=== PATIENT | male | born 1970 | race Caucasian/White ===

== ENCOUNTER 2019-10-25 07:23 | Day surgery (SDC) | payer BC ==
[2019-10-24 17:21] LABS: Absolute Lymphocytes (CBC) 0.6 K/uL (0.7-4.9); Basophils % 0.2 % (0-1.3); Hematocrit 24.5 % (39.6-49.0); Lymphocytes % 8.9 % (15.3-44.8); MPV 8.2 fL (7.6-11.3); RBC Red Blood Cell Count 2.69 M/uL (4.33-5.43)
[2019-10-24 17:52] LABS: Platelet Estimate ADEQ; Urine White Blood Cell Casts OK
[2019-10-24 17:53] LABS: Blood Morphology Comment NOT SEEN (NOT SEEN)
[2019-10-25] MEDS ORDERED: NA CHLORIDE 0.9% 500 ML ONE (07:43)
[2019-10-25 08:30] VITALS: BMI 38.7
[2019-10-25 12:58] LABS: Hematocrit 26.6 % (39.6-49.0)
[2019-10-25 13:13] VITALS: BP 105/67; TEMP 98.8; O2SAT 98
== END 2019-10-25 13:00 | disposition home or self-care (01) ==
LOC: DS 07:23
PROVIDERS: ATTEND Internal Medicine Gastroenterology
DX: K51.90 Ulcerative colitis, unspecified, without complications (principal); K92.1 Melena; K29.80 Duodenitis without bleeding; K52.9 Noninfective gastroenteritis and colitis, unspecified; E86.0 Dehydration
CPT/HCPCS: 85025; 36415; 86900; 86850; 86901; 85018; 85014; 36430; P9016; J7040

== ENCOUNTER 2020-01-30 07:35 | Day surgery (SDC) | payer OTHER ==
[2020-01-29 19:33] LABS: Absolute Lymphocytes (CBC) 0.7 K/uL (0.7-4.9); Basophils % 0.2 % (0-1.3); Hematocrit 23.3 % (39.6-49.0); Lymphocytes % 11.8 % (15.3-44.8); MPV 7.8 fL (7.6-11.3); RBC Red Blood Cell Count 3.37 M/uL (4.33-5.43)
[2020-01-29 20:39] LABS: Blood Morphology Comment NOTED (NOT SEEN); Hypochromasia 1+; Platelet Estimate INCR; Urine White Blood Cell Casts OK
[2020-01-30] MEDS ORDERED: NA CHLORIDE 0.9% 250 ML ONE ×2 (08:19→10:59)
[2020-01-30] MEDS ORDERED: FUROSEMIDE 40 MG/4 ML VIAL ONE (09:18)
[2020-01-30 13:09] VITALS: BP 119/70; TEMP 98.9; O2SAT 99
[2020-01-30 15:13] LABS: Hematocrit 28.7 % (39.6-49.0)
== END 2020-01-30 15:05 | disposition home or self-care (01) ==
LOC: DS 07:35
PROVIDERS: ATTEND Internal Medicine Gastroenterology
DX: D50.0 Iron deficiency anemia secondary to blood loss (chronic) (principal); R53.83 Other fatigue; K92.1 Melena; K56.690 Other partial intestinal obstruction; K51.90 Ulcerative colitis, unspecified, without complications
CPT/HCPCS: 85025; 36415; 86900; 86850; 86901; 85018; 85014; 36430; J1940; P9016 ×2; J7030 ×2

== ENCOUNTER 2020-04-29 13:28 | Emergency (ER) | payer OTHER ==
[2020-04-29] MEDS ORDERED: HYDROCODONE/APAP 7.5/325 MG TAB ONE (13:54)
[2020-04-29] MEDS ORDERED: FENTANYL CITR 100 MCG/2 ML ONE (14:39)
[2020-04-29] MEDS ORDERED: NA CHLORIDE 0.9% 1,000 ML ONE (14:39)
--- OUTSIDE RECORDS SUMMARY | 2020-04-29 14:56 | XMS REPORT | Continuity of Care Document ---
:1970 Author Organization [facility] Address [address] [place] [address] Care Team Providers Name Role Phone MD Hilary VERDE Primary Care Physician Allergies, Adverse Reactions, Alerts No known allergies. Medications No known medications. Problems No problem information available. Procedures No procedure information available. Relevant Diagnostic Tests and/or Laboratory Data No known relevant diagnostic tests and/or laboratory data. Health Concerns Health Concerns may be documented in an alternate section. Advance Directives Advance Directive Response Recorded Date/Time Name of Surrogate/Decision February 10 0 9:39am Maker Encounters Encounter Location(s) Arrival/Admit Date Discharge/Depart Date Provider(s) Discharged [place] February 11, 2020 March 02, 2020 Dylon VERDE [facility] 9:40am 11:59pm Hil[facility] Assessments No Assessments Information Available Functional Status No Functional Status information available Goals Goals may be documented in an alternate section. Immunizations No Immunization Information Available Mental Status No Mental Status Information Available Medical Equipment No Medical Equipment Information available Insurance Providers Guarantor Mecca Martinez Address [address] [facility] [address] Contact Info. Home Phone: Payer Policy Id Coverage Id Subscriber's Subscriber Id Effective E xpiration Name Date Date [place] [id number] Juan [id number] Health Plan [address] Social History Assigned Sex Male Vital Signs Vital Reading Result Collection Date/Time
--- OUTSIDE RECORDS SUMMARY | 2020-04-29 14:56 | XMS REPORT | Continuity of Care Document ---
:1970 Author Organization [facility] Address [address] [place] [address] Care Team Providers Name Role Phone OTHER, NAME IN NOTES Primary Care Physician Unavailable Allergies, Adverse Reactions, Alerts No known allergies. Medications No known medications. Problems No problem information available. Procedures No procedure information available. Relevant Diagnostic Tests and/or Laboratory Data No known relevant diagnostic tests and/or laboratory data. Health Concerns Health Concerns may be documented in an alternate section. Encounters Encounter Location(s) Arrival/Admit Date Discharge/Depart Date Provider(s) Discharged [place] March 24, 2020 April 01, 2020 ANGELICA VERDE [facility] 9:53am 11:59pm M Ctr Discharged [place] February 11, 2020 March 02, 2020 Dylon VERDE [facility] 9:40am 11:59pm M MD Phillip Assessments No Assessments Information Available Functional Status No Functional Status information available Goals Goals may be documented in an alternate section. Immunizations No Immunization Information Available Mental Status No Mental Status Information Available Medical Equipment No Medical Equipment Information available Insurance Providers Guarantor Mecca Martinez Address [address] [facility] [address] Contact Info. Home Phone: Payer Policy Id Coverage Id Subscriber's Subscriber Id Effective E xpiration Name Date Date [place] [id number] Juan [id number] Health Plan [address] Social History Assigned Sex Male Vital Signs Vital Reading Result Collection Date/Time
--- NOTE | 2020-04-29 15:32 | RAD REPORT ---
EXAM DESCRIPTION: RAD - Ankle Left 3 View -04/29/2020 2:17 pm CLINICAL HISTORY: Left ankle pain status post injury FINDINGS: No fracture or dislocation is seen involving the left ankle
--- NOTE | 2020-04-29 15:37 | RAD REPORT ---
EXAM DESCRIPTION: RAD - Foot Left 3 View - 04/29/2020 2:17 pm CLINICAL HISTORY: Left Foot pain status post fall FINDINGS: Dislocations involves proximal fourth and fifth metatarsals. Also appears to be a dislocat ion involving the calcaneal cuboid joint. No fracture visualized
--- NOTE | 2020-04-29 15:39 | RAD REPORT ---
EXAM DESCRIPTION: RAD - Foot Left 3 View - 04/29/2020 3:00 pm CLINICAL HISTORY: Left Foot pain status post fall FINDINGS: Comparison is made to earlier x-ray on the same date Previously described dislocation involving the proximal fourth metatarsal appears reduced There is better alignment of fifth metatarsal although it appears mildly dislocated The calcaneal cuboid joint has a more normal appearance
--- NOTE | 2020-04-29 17:13 | RAD REPORT ---
EXAM DESCRIPTION: CT - Foot Left Wo Con - 04/29/2020 4:41 pm CLINICAL HISTORY: Foot pain and swelling COMPARISON: X-ray April 29, 2020 TECHNIQUE: Computed axial tomography left foot All CT scans are performed using dose optimization technique as appropriate and may include automated exposure control or mA/KV adjustment according to patient size. FINDINGS: Small avulsion fracture base of second metatarsal Comminuted fracture base of third metatarsal . Largest fragment measures 13 millimeters. Dislocation third MTP joint The cuboid bone is shattered into multiple bony fragments. Marked displacement of fracture fragments is present. Dislocation fourth MTP joint Dislocation fifth MTP joint IMPRESSION: Cuboid bony shattered into multiple bony fragments with marked displacement of fracture fragments Small avulsion fracture base second metatarsal Comminuted fracture base of the third metatarsal Dislocations involves the fourth and fifth proximal metatarsals
--- NOTE | 2020-04-29 17:55 | ER ---
Nurse's Notes [facility] Name: Darrian Jacob Age: 49 yrs Sex: Male : 1970 Arrival Date: 04/29/2020 Time: 13:30 Bed 20 Private MD: Diagnosis: Displaced fracture of third metatarsal bone, left foot;Displaced fracture of cuboid bone of left foot;Dislocation of tarsometatarsal joint of left foot-fourth and fifth Presentation: 04/29 13:30 Chief complaint: Patient states: fell from attic ladder to floor, approx 7ft, pain to top of left foot, obvious deformity. 13:30 Acuity: DARSHANA 3 13:30 Method Of Arrival: EMS: [facility] 13:34 Care prior to arrival: Splint applied. Mechanism of Injury: Fall approximately 7 feet. 13:35 Coronavirus screen: Patient denies a cough. Patient denies shortness of breath or difficulty breathing. Patient denies measured and/or subjective temperature greater than 100.4F prior to today's visit. Patient denies travel on a cruise ship or to a country the [facility] currently lists as an affected area. Patient denies contact with known and/or suspected case of COVID-19. Proceed with normal triage. Ebola Screen: No symptoms or risks identified at this time. Initial Sepsis Screen: Does the patient meet any 2 criteria? No. Patient's initial sepsis screen is negative. Does the patient have a suspected source of infection? No. Patient's initial sepsis screen is negative. Risk Assessment: Do you want to hurt yourself or someone else? Patient reports no desire to harm self or others. Onset of symptoms was April 29, 2020. Historical: - Allergies: 14:55 No Known Allergies; - PMHx: 14:55 Anxiety; Kidney stones; - Immunization history:: Adult Immunizations not up to date. - Social history:: Smoking status: . Screenin:46 Abuse screen: Denies threats or abuse. Nutritional screening: No deficits noted. Tuberculosis screening: No symptoms or risk factors identified. Fall Risk None identified. Assessment: 14:40 General: Appears uncomfortable, Behavior is calm, cooperative, appropriate for age. Pain: Complains of pain in dorsum of left foot Pain currently is 4 out of 10 on a pain scale. Quality of pain is described as aching. Neuro: Level of Consciousness is awake, alert, obeys commands, Oriented to person, place, time, situation, Appropriate for age. Cardiovascular: Capillary refill < 3 seconds Patient's skin is warm and dry. Respiratory: Airway is patent Respiratory effort is even, unlabored. Derm: Skin is intact, is healthy with good turgor. Musculoskeletal: Circulation, motion, and sensation intact. Capillary refill < 3 seconds, Range of motion: intact in left ankle Bony deformity noted of dorsum of left foot Swelling present in dorsum of left foot Tenderness Reports. Injury Description: Deformity sustained to dorsum of left foot. 15:45 Reassessment: Pt tolerated hydrocodone well. No adverse reactions. 16:36 Reassessment: Pt to radiology via stretcher for Ct scan. 17:30 Reassessment: Patient and/or family updated on plan of care and expected duration. Pain ah level reassessed. Patient is alert, oriented x 3, equal unlabored respirations, skin warm/dry/pink. awaiting on decision from provider. No needs voiced. 18:08 Reassessment: Pt changed into dry gown. Posterior leg splint placed per cv tech. ah Tolerated well. 18:50 Reassessment: Awaiting on transfer. 18:56 Reassessment: Report given to Raiza SOUSA. Pt being transferred per ambulance now. Vital Signs: 13:24 BP 129 / 77; Pulse 81; Resp 18; Pulse Ox 100% ; 13:35 BP 129 / 77; Pulse 83; Resp 18; Temp 98.7; Pulse Ox 100% ; Weight 80.29 kg; Height 5 ft. 3 in. (160.02 cm); Pain 4/10; 14:00 BP 122 / 83; Pulse 83; Resp 18; Pulse Ox 99% ; 17:51 BP 145 / 86; Pulse 70; Resp 17; Pulse Ox 100% ; 13:35 Body Mass Index 31.35 (80.29 kg, 160.02 cm) ED Course: 13:30 Patient arrived in ED. am2 13:31 Ness James, RN is Primary Nurse. 13:31 Chandan Mccarthy PA is PHCP. cp 13:31 Chandan Vides MD is Attending Physician. 13:34 Triage completed. 14:16 XRAY Foot LEFT 3 View In Process Unspecified. EDMS 14:16 XRAY Ankle LEFT 3 view In Process Unspecified. EDMS 14:30 Inserted saline lock: 20 gauge in right antecubital area, using aseptic technique. mt 14:47 Assist provider with reduction of left ankle using manipulation, Set up for procedure. ah Performed by Chandan CELESTIN Patient tolerated well. 14:48 Patient has correct armband on for positive identification. Placed in gown. Bed in low ah position. Call light in reach. Side rails up X2. Pulse ox on. NIBP on. 15:00 XRAY Foot LEFT 3 View In Process Unspecified. EDMS 15:00 Arm band placed on right wrist. Patient notified of wait time. ah 16:42 Foot Left Wo Con In Process Unspecified. EDMS 18:09 Orthoglass splint: Posterior short lleg splint applied on left leg. va 18:58 Patient transferred, IV remains in place. intact, bleeding controlled, No ah redness/swelling at site. Administered Medications: 13:40 Drug: Hydrocodone-Acetaminophen (7.5 mg-325 mg) 1 tabs Route: PO; ah 18:06 Follow up: Response: No adverse reaction; Pain is decreased 14:34 Drug: fentaNYL (PF) 25 mcg Route: IVP; Site: right antecubital; ah 18:05 Follow up: Response: No adverse reaction; Pain is decreased 14:34 Drug: NS 0.9% 1000 ml Route: IV; Rate: 1 bolus; Site: right antecubital; ah 21:19 Follow up: Response: No adverse reaction; IV Status: Completed infusion Outcome: 17:55 ER care complete, transfer ordered by . cp 18:57 Transferred by ground EMS to [facility], Transfer form completed. 18:57 Condition: good 18:57 Instructed on the need for transfer. 18:58 Patient left the ED. Signatures: Dispatcher [employer] EDChandan Roberts PA PA cp Moreno, Amanda am2 Thompson, Moriah mt Harris, Amy, RN RN Corrections: (The following items were deleted from the chart) 16:35 13:30 Chief complaint: Patient states: fell from attic ladder to floor, approx 7ft, pain to top of right foot, obvious deformity.
--- NOTE | 2020-04-29 17:56 | EDPHYS ---
Physician Documentation [facility] Name: Darrian Jacob Age: 49 yrs Sex: Male : 1970 Arrival Date: 04/29/2020 Time: 13:30 Bed 20 Private MD: ED Physician Chandan Vides HPI: 04/29 14:00 This 49 yrs old Male presents to ER via EMS with complaints of Fall Injury. cp 14:00 The patient presents with decreased range of motion, a deformity, an injury. cp 14:00 The complaints affect the left foot. Context: The problem was sustained at home, cp resulted from the patient falling, through attic to ground floor approximately 7 feet, the patient is not able to bear weight, the patient is not able to ambulate. Onset: The symptoms/episode began/occurred just prior to arrival. Associated signs and symptoms: Pertinent negatives: calf tenderness, numbness. Severity of symptoms: in the emergency department the symptoms have improved, mildly. Historical: - Allergies: 14:55 No Known Allergies; ah - PMHx: 14:55 Anxiety; Kidney stones; - Immunization history:: Adult Immunizations not up to date. - Social history:: Smoking status: . ROS: 14:05 Constitutional: Negative for body aches, chills, fever, poor PO intake. cp 14:05 Neck: Negative for pain with movement, pain at rest, stiffness. 14:05 Cardiovascular: Negative for chest pain. 14:05 Respiratory: Negative for cough, shortness of breath, wheezing. 14:05 Abdomen/GI: Negative for abdominal pain, nausea, vomiting, and diarrhea. 14:05 Back: Negative for pain at rest, pain with movement. 14:05 MS/extremity: Positive for injury or acute deformity, pain, of the left foot, Negative for paresthesias. 14:05 Neuro: Negative for altered mental status, headache, loss of consciousness, syncope. 14:05 All other systems are negative. Exam: 14:15 Constitutional: The patient appears in no acute distress, alert, awake, well developed, cp well nourished, uncomfortable. 14:15 Head/Face: Normocephalic, atraumatic. cp 14:15 Eyes: Periorbital structures: appear normal, Conjunctiva: normal, no exudate, no injection, Lids and lashes: appear normal, bilaterally. 14:15 ENT: External ear(s): are unremarkable, Nose: is normal, Mouth: is normal, Posterior pharynx: Airway: no evidence of obstruction, patent. 14:15 Neck: C-spine: vertebral tenderness, is not appreciated, crepitus, is not appreciated, ROM/movement: is normal, is supple, without pain, no range of motions limitations. 14:15 Chest/axilla: Inspection: normal, Palpation: is normal, no crepitus, no tenderness. 14:15 Cardiovascular: Rate: normal, Rhythm: regular. 14:15 Respiratory: the patient does not display signs of respiratory distress, Respirations: normal, no use of accessory muscles, no retractions, labored breathing, is not present, Breath sounds: are clear throughout, no decreased breath sounds, no stridor, no wheezing. 14:15 Abdomen/GI: Inspection: abdomen appears normal, Bowel sounds: active, all quadrants, Palpation: abdomen is soft and non-tender, in all quadrants, rebound tenderness, is not appreciated, involuntary guarding, is not appreciated. 14:15 Back: pain, is absent, ROM is normal, vertebral tenderness, is not appreciated, Straight leg raises: of both lower extremities does not illicit pain. 14:15 Musculoskeletal/extremity: Extremities: grossly normal except: noted in the dorsum of left foot: deformity, ecchymosis, pain, swelling, tenderness, Perfusion: the extremity is normally perfused throughout, Sensation intact. 14:15 Skin: intact without open wounds. 14:15 Neuro: Orientation: to person, place \T\ time. Mentation: is normal, Motor: moves all fours, strength is normal, Sensation: is normal. Vital Signs: 13:24 BP 129 / 77; Pulse 81; Resp 18; Pulse Ox 100% ; ah 13:35 BP 129 / 77; Pulse 83; Resp 18; Temp 98.7; Pulse Ox 100% ; Weight 80.29 kg; Height 5 ah ft. 3 in. (160.02 cm); Pain 4/10; 14:00 BP 122 / 83; Pulse 83; Resp 18; Pulse Ox 99% ; ah 17:51 BP 145 / 86; Pulse 70; Resp 17; Pulse Ox 100% ; ah 13:35 Body Mass Index 31.35 (80.29 kg, 160.02 cm) MDM: 13:33 Patient medically screened. cp 14:15 Differential diagnosis: fracture, contusion, multiple trauma, dislocation. 17:20 Data reviewed: vital signs, nurses notes, radiologic studies, CT scan, plain films, I cp have discussed the patient's presentation/case with the attending Emergency Department Physician;. 17:30 Counseling: I had a detailed discussion with the patient and/or guardian regarding: the cp historical points, exam findings, and any diagnostic results supporting the discharge/admit diagnosis, radiology results, the need to transfer to another facility, [facility] does not immediately have the required specialist. 17:30 Response to treatment: the patient's symptoms have mildly improved after treatment. 04/29 13:33 Order name: XRAY Foot LEFT 3 View; Complete Time: 15:41 04/29 13:33 Order name: XRAY Ankle LEFT 3 view; Complete Time: 15:41 04/29 14:45 Order name: XRAY Foot LEFT 3 View; Complete Time: 15:41 04/29 16:13 Order name: Foot Left Wo Con; Complete Time: 17:16 EDIL 04/29 14:18 Order name: IV; Complete Time: 14:30 04/29 17:46 Order name: Splint - Posterior Leg: left short leg and foot; Complete Time: 18:07 Administered Medications: 13:40 Drug: Hydrocodone-Acetaminophen (7.5 mg-325 mg) 1 tabs Route: PO; ah 18:06 Follow up: Response: No adverse reaction; Pain is decreased 14:34 Drug: fentaNYL (PF) 25 mcg Route: IVP; Site: right antecubital; ah 18:05 Follow up: Response: No adverse reaction; Pain is decreased 14:34 Drug: NS 0.9% 1000 ml Route: IV; Rate: 1 bolus; Site: right antecubital; ah 21:19 Follow up: Response: No adverse reaction; IV Status: Completed infusion Disposition: 18:15 Chart complete. 04/30 08:40 Co-signature as Attending Physician, Chandan Vides MD I agree with the assessment and tyra plan of care. Disposition: 04/29/20 17:[address] [facility]. Diagnosis are Displaced fracture of third metatarsal bone, left foot, Displaced fracture of cuboid bone of left foot, Dislocation of tarsometatarsal joint of left foot - fourth and fifth. - Reason for transfer: Higher level of care. - Accepting physician is DR Street. - Condition is Stable. - Problem is new. - Symptoms have improved. Signatures: Dispatcher [employer] Chandan Carlson MD MD cha Page, Corey, PA PA cp Harris, Amy RN RN Corrections: (The following items were deleted from the chart) 04/29 18:19 17:55 04/29/2020 17:[address] [facility]. Diagnosis is cp Displaced fracture of third metatarsal bone, left foot; Displaced fracture of cuboid bone of left foot; Dislocation of tarsometatarsal joint of left foot - fourth and fifth. Reason for transfer: Higher level of care. Accepting physician is Doctor. Condition is Stable. Problem is new. Symptoms have improved. cp 18:58 18:19 04/29/2020 17:[address] [facility]. Diagnosis is Displaced fracture of third metatarsal bone, left foot; Displaced fracture of cuboid bone of left foot; Dislocation of tarsometatarsal joint of left foot - fourth and fifth. Reason for transfer: Higher level of care. Accepting physician is DR Street. Condition is Stable. Problem is new. Symptoms have improved. cp
[2020-04-29 19:05] VITALS: TEMP 98.7
[2020-04-29 19:08] VITALS: BP 145/86; O2SAT 100
== END 2020-04-29 18:58 | disposition short-term general hospital (02) ==
LOC: ER 13:28
PROC: 2W3RX1Z Immobilization of Left Lower Leg using Splint (ICD-10-PCS; principal; 2020-04-29)
DX: S92.332A Displaced fracture of third metatarsal bone, left foot, initial encounter for closed fracture (principal); S92.212A Displaced fracture of cuboid bone of left foot, initial encounter for closed fracture; S93.325A Dislocation of tarsometatarsal joint of left foot, initial encounter; S93.105A Unspecified dislocation of left toe(s), initial encounter; W17.89XA Other fall from one level to another, initial encounter; Y93.9 Activity, unspecified; Y92.008 Other place in unspecified non-institutional (private) residence as the place of occurrence of the external cause
CPT/HCPCS: 73700; 73630 ×2; 73610; 29515; J3010; J7030; 96361; 96374; 99285

== ENCOUNTER 2022-05-21 07:22 | Day surgery (SDC) | payer OTHER ==
[2022-05-21] MEDS ORDERED: FUROSEMIDE 40 MG/4 ML VIAL ONE (10:10)
[2022-05-21 11:36] VITALS: BMI 34.7
[2022-05-21 14:52] LABS: Hematocrit 28.1 % (39.6-49.0)
[2022-05-21 15:06] VITALS: O2SAT 100
[2022-05-21 15:07] VITALS: BP 119/62; TEMP 97.1
== END 2022-05-21 14:35 | disposition home or self-care (01) ==
LOC: DS 07:22
PROVIDERS: ATTEND Internal Medicine Gastroenterology
DX: D64.9 Anemia, unspecified (principal); K51.90 Ulcerative colitis, unspecified, without complications
CPT/HCPCS: 36415; 86900; 86850; 86901; 85018; 85014; 36430; J1940; P9016 ×2

== ENCOUNTER 2023-07-07 16:31 | Emergency (ER) | payer OTHER ==
[~2023-07-07 16:31] MED LIST: Meropenem 1,000 MG in NA CHLORIDE 0.9% 100 ML IV SCH
--- OUTSIDE RECORDS SUMMARY | 2023-07-07 16:36 | XMS REPORT | Continuity of Care Document ---
:1970 Author Organization [facility] t Address [address] [place] [address] Care Team Providers Name Role Phone Asked, No Pcp Primary Care Physician Unavailable [facility] Annamaria BRONSON Attending Clinician Unavailable Ryan Simeon CPhT Attending Clinician Unavailable Elena Schrader MD Attending Clinician Olga Joiner MD Attending Clinician Raven Cui NP Attending Clinician Leticia Mccray MA Attending Clinician Unavailable MARIVEL JEFFERY, P.Ángel Attending Clinician Unavailable KRISTINA CASTAÑEDA M.D. Attending Clinician Unavailable IMMANUEL HARDY P.A. Attending Clinician Unavailable ELENA SCHRADER Admitting Clinician Unavailable Payers Payer Name Policy Type Policy Number Effective Date Expiration Date S ource Problems Condition Condition Condition Status Onset Resolution Last Treating Co mments Source Name Details Category Date Date Treatment Clinician Date Left foot Left foot Problem Active [facility] ans Allergies, Adverse Reactions, Alerts This patient has no known allergies or adverse reactions. Social History Social Habit Start Date Stop Date Quantity Comments Source Sexual orientation 2022-09-21 Heterosexual Meth odist 13:51:15 (finding) Hospital History of tobacco Current smoker Me [facility]odist use Hospital History of Social 2023-03-07 2023-03-[address] function 00:00:00 00:00:00 Hospital Alcohol intake 2023-02-03 2023-02-03 Lifetime Christian 00:00:00 00:00:00 non-drinker Hospital (finding) Sex Assigned At [birth year] M Christian 00:00:00 00:00:00 Hospital Smoking Status Start Date Stop Date Source Ex-smoker 2023-01-31 00:00:00 2023-01-31 00:00:00 [facility] Medications Ordered Filled Start Stop Current Ordering Indication Dosage Frequency Signature Comments Components Source Medication Medication Date Date Medication? Clinician (SIG) Name Name rhettdacitini Yes 30mg QD Take 1 Meth maria teresa b (Rinvoq) 7-17 tablet (30 st 30 mg 00:00: mg total) Hospita tablet 00 by mouth l extended daily. release 24 hr upadacitini Yes 45mg QD Take 1 Meth maria teresa b (Rinvoq) 7-17 tablet (45 st 45 mg 00:00: mg total) Hospita tablet 00 by mouth l extended daily. release 24 hr predniSONE Yes Take 10mg Me thodi (DELTASONE) 6-15 po qd, st 5 mg tablet 00:00: taper as Ho spita 00 directed l upadacitini 2022- No 45mg QD Take 1 Met hodi b (Rinvoq) 03-09 07-17 tablet (45 st 45 mg 00:00: 00:00 mg total) Hospit a tablet 00 :00 by mouth l extended daily. release 24 hr upadacitini 2022- No 45mg QD Take 1 Met hodi b (Rinvoq) 03-09-07 tablet (45 st 45 mg 00:00: 00:00 mg total) Hospit a tablet 00 :00 by mouth l extended daily. release 24 hr predniSONE Yes Take 40mg Me thodi (DELTASONE) 5-[address] 10 mg 00:00: 10 days, Hospita tablet 00 then 30mg l po qd for 10 days, then 20mg po qd for 10 days,then 10mg po qd for 10 days, then 5mg po qd for 10 days then stop. polyethylen 2022- No Take po as Methodi e glycol 3-23 05-[address] (Golytely) 00:00: 00:[address] [place] frank [id number] 00 :00 office l .74 -5.86 gram solution traZODone Yes Methodi (DESYREL) 1-29 st 50 MG 00:00: Hospita tablet 00 l mesalamine 2022- No USE 4 Metho di (ROWASA) 4 1-18 05-[address] gram/60 mL 00:00: 00:00 DAILY Hospi ta enema 00 :00 RECTALLY l sertraline Yes 50mg QD Take 1 Metho di (ZOLOFT) 50 1-14 tablet (50 st MG tablet 00:00: mg total) Hos meka 00 by mouth l daily. hydroCHLORO Yes 25mg QD Take 1 Meth maria teresa thiazide 1-05 tablet (25 st (HYDRODIURI 00:00: mg total) H ospita L) 25 MG 00 by mouth l tablet daily. upadacitini 2022- No Metho di b (Rinvoq) 8 07-17 st 30 mg 00:00: 00:00 Hospita tablet 00 :00 l extended release 24 hr mesalamine 0 Yes Methodi (LIALDA) 7- st 1.2 gram EC 00:00: Hospit a tablet 00 l Immunizations Ordered Immunization Filled Immunization Date Status Commen ts Source Name Name Hepatitis B Unknown Completed [facility] Zoster Vaccine Unknown Completed [facility] Vital Signs Vital Name Observation Time Observation Value Comments Source Systolic blood 2023-02-01 15:45:00 142 mm[Hg] Method ist Hospital pressure Diastolic blood 2023-02-01 15:45:00 77 mm[Hg] Metho dist Hospital pressure Heart rate 2023-02-01 15:45:00 71 /min [facility] Body temperature 2023-02-01 15:45:00 36.56 Camila [facility] Respiratory rate 2023-02-01 15:45:00 17 /min [facility] Oxygen saturation in 2023-02-01 15:45:00 99 /min [facility] Arterial blood by Pulse oximetry Body height 2023-02-01 13:58:00 157.5 cm [facility] Body weight 2023-02-01 13:58:00 99.428 kg [facility] BMI 2023-02-01 13:58:00 40.09 kg/m2 [facility] Procedures Procedure Date / Time Performing Clinician Source Performed LIPID PANEL 2023-04-07 15:53:[address] [facility] WITH PLATELET AND 2023-04-07 15:51:00 [facility] DIFFERENTIAL TOTAL IRON BINDING 2023-04-07 15:[facility] F[facility] LEVEL 2023-04-07 [facility]GICAL [facility]OLOGY 2023-02-01 16:42:[facility] COLON[facility] 2023-02-01 15:00:00 [facility] C-REACTIVE PROTEIN 2022-11-18 16:35:00 [facility] SEDIMENTATION RATE 2022-11-18 16:35:00 [facility] COMPREHENSIVE METABOLIC 2022-11-18 16:35[facility] CBC WITH PLATELET AND 2022-11-18 16:35:00 [facility] DIFFERENTIAL FERRITIN LEVEL 2022-11-18 16:35:[address] [facility] TOTAL IRON BINDING 2022-11-18 16:35:00 [facility] CAPACITY VARICELLA ZOSTER VIRUS 2022-11-18 16:35:[facility], IGG HEPATITIS B SURFACE 2022-11-18 16:35:00 [facility] ANTIGEN HEPATITIS B CORE ANTIBODY 2022-11-18 16:35:00 [facility] TOTAL HEPATITIS B SURFACE 2022-11-18 16:35:00 [facility] ANTIBODY VITAMIN D 25 HYDROXY 2022-11-18 16:35:00 [facility] LEVEL VITAMIN B12 LEVEL 2022-11-18 16:35:00 [facility]one [facility] QUANTIFERON®-TB GOLD 2022-11-18 16:35:00 [facility]one [facility] PLUS, 1 TUBE Post Op Promis 29 Survey 2020-07-17 00:00:00 [facility] [U] XRAY FOOT MIN 3 VWS 2020-07-16 00:00:00 [facility] LEFT [id number] Post Op Promis 29 Survey 2020-05-16 00:00:00 [facility] Plan of Care Planned Activity Planned Date Details Comments Source Future Scheduled 2023-06-10 Screening for [facility] Test 18:15:10 malignant neoplasm of colon (procedure) [code = 712552074] Future Scheduled 2023-06-10 Screening for [facility] Test 18:15:10 malignant neoplasm of colon (procedure) [code = 369859214] Future Scheduled 2023-06-10 Screening for [facility] Test 18:15:10 malignant neoplasm of colon (procedure) [code = 251948008] Future Scheduled 2023-06-10 COVID-19 VACCINE [facility] Test 18:15:10 (#1) [code = COVID-19 VACCINE (#1)] Future Scheduled 2023-06-10 Hepatitis C [facility] Test 18:15:10 screening (procedure) [code = 915036020] Future Scheduled 2023-06-10 Screening for [facility] Test 18:15:10 malignant neoplasm of colon (procedure) [code = 773606354] Future Scheduled 2023-06-10 Screening for [facility] Test 18:15:10 malignant neoplasm of colon (procedure) [code = 911541335] Future Scheduled 2023-06-10 SHINGLES VACCINES [facility] Test 18:15:10 (2 of 2) [code = SHINGLES VACCINES (2 of 2)] Future Scheduled 2023-06-10 INFLUENZA VACCINE [facility] Test 18:15:10 (#1) [code = INFLUENZA VACCINE (#1)] Encounters Start End Encounter Admission Attending Care Care Encounter Source Date/Time Date/Time Type Type Clinicians Facility Department ID 2023-05-24 2023-05-24 Documentat Kimberly, 1.2.840.1 [id number] Methodi 00:00:00 00:00:00 ion Annamaria 23323.1.[address] 3.430.2.7 Hospit a .3.293187 l .8 2023-04-18 2023-04-18 [facility] 1.[facility]1 [id number] Methodi 00:00:00 00:00:00 Only Annamaria [address]1513.1.[address] 3.430.2.7 Hospit a .3.944876 l .8 2023-03-23 2023-03-23 Telephone Cailin, 1.2.840.1 [id number] [id number] Methodi 00:00:00 00:00:[address] 3.430.2.7 Hospit a .3.065229 l .8 2023-03-17 2023-03-17 Orders [facility], 1.2.840.1 [id number] Methodi 00:00:00 00:00:00 Only Annamaria 10627.1.[address] 3.430.2.7 Hospit a .3.575136 l .8 2023-03-10 2023-03-10 Telephone Cailin, 1.2.840.1 [id number] [id number] Methodi 00:00:00 00:00:[address] 3.430.2.7 Hospit a .3.082183 l .8 2023-03-09 2023-03-09 Telemedici Fan, 1.2.840.1 [id number] Methodi 11:30:00 11:30:00 ne Elena 79534.1.[address] 3.430.2.7 Hospit a .3.556201 l .8 2023-03-09 2023-03-09 Outpatient FAN, [facility] [id number] [place] 00:00:00 00:00:[address]RI[address]HER [address] 2023-03-09 2023-03-09 Documentat [facility], 1.2.840.1 [id number] Methodi 00:00:00 00:00:00 ion Annamaria 80358.1.[address] 3.430.2.7 Hospit a .3.263379 l .8 2023-03-09 2023-03-09 Orders [facility], 1.2.840.1 [id number] Methodi 00:00:00 00:00:00 Only Annamaria 40358.1.[address] 3.430.2.7 Hospit a .3.003223 l .8 2023-03-09 2023-03-09 Orders [facility], 1.2.840.1 [id number] Methodi 00:00:00 00:00:00 Only Annamaria 64913.1.[address] 3.430.2.7 Hospit a .3.587447 l .8 2023-02-01 2023-02-01 Hospital Jone, 1.2.840.1 [id number] Methodi 06:33:00 23:59:00 Encounter Elena 07758.1.[address] 3.430.2.7 Hospit a .3.128708 l .8 2023-02-01 2023-02-01 Anesthesia Olga Joiner 1.2.840.1 [id number] Methodi 10:00:00 10:32:00 Event Raven Cui 91836.1.[address] 3.430.2.7 Hospit a .3.421221 l .8 2023-02-01 2023-02-01 Surgery Jone, 1.2.840.1 [id number] Methodi 09:30:00 10:30:[address] 3.430.2.7 Hospit a .3.045133 l .8 2023-02-01 2023-02-01 Outpatient FAN, [facility] 061 [id number] [place] 00:00:00 00:00:00 CHRISTOPHER [address] 2023-02-01 2023-02-01 Orders [facility], 1.2.840.1 [id number] Methodi 00:00:00 00:00:00 Only Annamaria [address]800.1.[address] 3.430.2.7 Hospit a .3.491080 l .8 2023-02-01 2023-02-01 Travel 1.2.840.1 1.2.950.138 [id number] [id number] Methodi 00:00:00 00:00:[address] 3.430.2.7 0.2.7.3.698 Ho spita .3.576248 084.8 l .8 2022-12-23 2022-12-23 Orders [facility], 1.2.840.1 [id number] Methodi 00:00:00 00:00:00 Only Annamaria 16826.1.[address] 3.430.2.7 Hospit a .3.370210 l .8 2022-12-23 2022-12-23 Orders [facility], 1.2.840.1 [id number] Methodi 00:00:00 00:00:00 Only Annamaria 97069.1.[address] 3.430.2.7 Hospit a .3.677095 l .8 2022-11-19 2022-11-19 Documentat Fan, 1.2.840.1 [id number] Methodi 00:00:00 00:00:00 ion Christopher 17781.1.[address] 3.430.2.7 Hospit a .3.677167 l .8 2022-11-18 2022-11-18 Telephone Fan, 1.2.840.1 [id number] Methodi 00:00:00 00:00:[address] 3.430.2.7 Hospit a .3.937426 l .8 2022-11-10 2022-11-10 Office Fan, 1.2.840.1 [id number] Methodi 11:00:00 11:12:00 Visit Elena 05395.1.[address] 3.430.2.7 Hospit a .3.913981 l .8 2022-11-10 2022-11-10 Outpatient FAN, [facility] [id number] [place] 00:00:00 00:00:00 ELENA [address] 2022-11-10 2022-11-10 Documentat Mccray, 1.2.840.1 [id number] Methodi 00:00:00 00:00:00 ion Leticia 64886.1.[address] 3.430.2.7 Hospit a .3.430230 l .8 2022-11-10 2022-11-10 Travel 1.2.840.1 1.2.801.775 8005 [id number] Methodi 00:00:00 00:00:[address] 3.430.2.7 0.2.7.3.698 Ho spita .3.894316 084.8 l .8 2020-07-22 2020-07-22 Appointmen LATIA [facility] [id number] [place] 11:00:00 11:00:00 t; MARIVEL JEFFERY, Yadira Physici chang ORTA P.A. 2020-07-02 2020-07-02 Appointmen KRISTINA CASTAÑEDA, [facility] [id number] [place] 07:30:00 07:30:00 t; Ava ACSTAÑEDA Physi ci Ava ACEVEDO ans 2020-06-17 2020-06-17 Appointmen KRISTINA CASTAÑEDA, [facility] [id number] [id number] [place] 11:45:00 11:45:00 t; Ava CASTAÑEAD Physi jonas ACEVEDO M.D. ans 2020-05-13 2020-05-13 Appointmen HAYLEY, [facility]TP [id number] [place] 11:45:00 11:45:00 t; IMMANUEL Physi jonas HARDY, P.Ángel ans IMMANUEL, P.A. 2020-04-30 2020-04-30 Appointmen KRISTINA CASTAÑEDA, [facility] [id number] [place] 13:00:00 13:00:00 loi CASTAÑEDA M.D. Physi jonas ACEVEDO M.D. ans Results Test Description Test Time Test Comments Results Result Comments Source Ferritin level 2023-04-08 12:22:00 Test Item Value Reference Range Interpretation Comme nts Ferritin level (test code = 2276-4) 8 ng/mL 38-380 L IAN (test code = IAN) FASTING:YESCOLLECTION KIT GIVEN TO PATIENT. PATIENT ADVISED TO RETURN. FASTING: YES RAC (test code = RAC) Performing Organization Information: Site ID: RGA [email or web address] Lab Address: [address] [place] [address] Director: Sonal Trejo Lab Interpretation (test code = Abnormal 59363-9) [facility] with platelet and [id number] 12:22:00 Test Item Value Reference Range Interpretation Comments WBC (test code = 6.3 See_Comment [Automated 1790-2) message] The system which generated this result transmitted reference range : 3.8 - 10.8 Thousand/uL. Th e reference range was not used to interpret this result as normal/abnormal . RBC (test code = 4.53 See_Comment [Automated 839-8) message] The system which generated this result transmitted reference range : 4.20 - 5.80 Million/uL. The reference range was not used to interpret this result as normal/abnormal . HGB (test code = 12.0 g/dL 13.2-17.1 L 718-7) HCT (test code = 38.1 % 38.5-50.0 L 4544-3) MCV (test code = 84.1 fL 80.0-100.0 787-2) MCH (test code = 26.5 pg 27.0-33.0 L 785-6) MCHC (test code = 31.5 g/dL 32.0-36.0 L 786-4) RDW (test code = 18.3 % 11.0-15.0 H 788-0) Platelet count (test 474 See_Comment H [Autom ated code = 777-3) message] The system which generated this result transmitted reference range : 140 - 400 Thousand/uL. Th e reference range was not used to interpret this result as normal/abnormal . MPV (test code = 9.6 fL 7.5-12.5 776-5) Neutrophils, 5487 See_Comment [Automated absolute (test code message] The = 751-8) system which generated this result transmitted reference range : 1,500 - 7,800 cells/uL. The reference range was not used to interpret this result as normal/abnormal . Lymphocytes, 485 See_Comment L [Automated absolute (test code message] The = 731-0) system which generated this result transmitted reference range : 850 - 3,900 cells/uL. The reference range was not used to interpret this result as normal/abnormal . Monocytes, absolute 239 See_Comment [Automa osito (test code = 742-7) message] The system which generated this result transmitted reference range : 200 - 950 cells/uL. The reference range was not used to interpret this result as normal/abnormal . Eosinophils, 50 See_Comment [Automated absolute (test code message] The = 711-2) system which generated this result transmitted reference range : 15 - 500 cells/uL. The reference range was not used to interpret this result as normal/abnormal . Basophils, absolute 38 See_Comment [Automa osito (test code = 704-7) message] The system which generated this result transmitted reference range : 0 - 200 cells/u L. The reference range was not used to interpr et this result as normal/abnormal . Neutrophils (test 87.1 % code = 770-8) Lymphocytes (test 7.7 % code = 736-9) Monocytes (test code 3.8 % = 5905-5) Eosinophils (test 0.8 % code = 713-8) Basophils + RC (test 0.6 % code = 706-2) IAN (test code = FASTING:YESCOLLECT IAN) ION KIT GIVEN TO PATIENT. PATIENT ADVISED TO RETURN. FASTING: YES RAC (test code = Performing RAC) Organization Information: Site ID: RGA Name: [facility] Lab Address: [address] [place] [address] Director: Sonal Trejo Lab Interpretation Abnormal (test code = 13834-0) [facility] iron binding [id number] 12:22:00 Test Item Value Reference Range Interpretation Comments Iron level (test 64 See_Comment [Automated code = 2498-4) message] The system which generated this result transmitted reference range : 50 - 180 mcg/dL . The reference range was not used to interpr et this result as normal/abnormal . Iron binding 335 See_Comment [Automated capacity (test code message] The = 2500-7) system which generated this result transmitted reference range : 250 - 425 mcg/d L (calc). The reference range was not used to interpret this result as normal/abnormal . Iron saturation 19 See_Comment L [Automated (test code = 2502-3) message ] The system which generated this result transmitted reference range : 20 - 48 % (calc ). The reference range was not used to interpr et this result as normal/abnormal . IAN (test code = FASTING:YESCOLLECT IAN) ION KIT GIVEN TO PATIENT. PATIENT ADVISED TO RETURN. FASTING: YES RAC (test code = Performing RAC) Organization Information: Site ID: A Name: [facility] Lab Address: [address] [place], [place] [address] Director: Sonal Trejo Lab Interpretation Abnormal (test code = 62298-8) [facility] [id number] 06:46:00 Test Item Value Reference Range Interpretation Comments Cholesterol, total 160 mg/dL <=200 (test code = 2093-3) HDL cholesterol 47 mg/dL See_Comment [Automated (test code = 2085-9) message ] The system which generated this result transmitted reference range : > OR = 40. The reference range was not used to interpret this result as normal/abnormal . Triglycerides (test 153 mg/dL <=150 H code = 2571-8) LDL cholesterol 88 mg/dL (calc) Reference ra nge: calculated (test <100 Desira ble code = 88039-1) range <100 m g/dL for primary prevention; <70 mg/dL for patients with C HD or diabetic patients with > or = 2 CHD risk factors. LDL-C is now calculated using the Gutierrez-Argenis calculation, which is a validated novel method providin g better accuracy than the Friedewald equation in the estimation of LDL-C. Gutierrez Nolasco S et al. WILMER. 2013;310(19): 7661-5877 (http://educati on .QuestDiagnosti Presto[employer] .com/faq/PWF254 ) Cholesterol/HDL 3.4 See_Comment [Automated ratio (test code = message] The 9830-1) system which generated this result transmitted reference range : <5.0 (calc). Th e reference range was not used to interpret this result as normal/abnormal . Non-HDL cholesterol 113 See_Comment For corazon ents with (test code = diabetes plus 1 68076-0) major ASCVD ris k factor, treatin g to a non-HDL-C goal of <100 mg/dL (LDL-C of <70 mg/dL) is considered a therapeutic option. [Automated message] The system which generated this result transmitted reference range : <130 mg/dL (calc). The reference range was not used to interpret this result as normal/abnormal . IAN (test code = FASTING:YES IAN) FASTING: YES RAC (test code = Performing RAC) Organization Information: Site ID: RGA Name: [facility] Lab Address: [address] [place], [place] [address] Director: Sonal Trejo Lab Interpretation Abnormal (test code = 85650-2) [facility] [id number] 01:38:27 Test Item Value Reference Range Interpretation Comments Case number (test code = [id number]) Surgical pathology See link below for report (test code = PDF Lab Report 2255) Result status (test code This is Revised = 0932142) Report for [id number] [facility] [id number] 13:37:00 Test Item Value Reference Range Interpretation Comments Glucose (test code 93 mg/dL 65-99 Fasting = 2345-7) reference interval BUN (test code = 8 mg/dL 7-25 3094-0) Creatinine (test 0.91 mg/dL 0.70-1.30 code = 2160-0) eGFR (test code = 101 See_Comment The eGFR i s based 03338-6) on the CKD-EPI 2020 equation. To calculate the n ew eGFR from a previous Creatinine or Cystatin Cresul t, go to https://www.kid ne y.org/proflouieio na alida/kdoqi/gfr%5F ca lculator [Automated message] The system which generated this result transmitted reference range : > OR = 60 mL/min/1.73m2. The reference range was not used to interpr et this result as normal/abnormal . BUN/creatinine NOT APPLICABLE See_Comment [Automated ratio (test code = message] The 3097-3) system which generated this result transmitted reference range : 6 - 22 (calc). The reference range was not used to interpr et this result as normal/abnormal . Sodium (test code 139 mmol/L 135-146 = 2951-2) Potassium (test 4.0 mmol/L 3.5-5.3 code = 2823-3) Chloride (test 101 mmol/L 98-110 code = 2075-0) CO2 (test code = 30 mmol/L 20-32 2027-9) Calcium (test code 9.1 mg/dL 8.6-10.3 = 84884-9) Protein (test code 7.3 g/dL 6.1-8.1 = 2885-2) Albumin, S (test 4.0 g/dL 3.6-5.1 code = 1751-7) Globulin, total 3.3 See_Comment [Automated (test code = message] The 60917-6) system which generated this result transmitted reference range : 1.9 - 3.7 g/dL (calc). The reference range was not used to interpret this result as normal/abnormal . Albumin/globulin 1.2 See_Comment [Automated ratio (test code = message] The 2299-0) system which generated this result transmitted reference range : 1.0 - 2.5 (calc ). The reference range was not used to interpr et this result as normal/abnormal . Total bilirubin 0.4 mg/dL 0.2-1.2 (test code = 1974-2) Alkaline 58 U/L 35-144 phosphatase (test code = 6768-6) AST (test code = 23 U/L 10-35 1920-8) ALT (test code = 28 U/L 9-46 1742-6) IAN (test code = FASTING:YESCOLLECTI IAN) ON KIT GIVEN TO PATIENT. PATIENT ADVISED TO RETURN. FASTING: YES RAC (test code = Performing RAC) Organization Information: Site ID: RGA [facility]: [email or web address] Lab Address: [address] [place] [address] Director[facility] Center[facility]it[facility] [id number] 13:37:00 Test Item Value Reference Range Interpretation Comments Vitamin B12 (test 846 pg/mL 200-1100 code = 2132-9) IAN (test code = FASTING:YESCOLLECTION KIT IAN) GIVEN TO PATIENT. PATIENT ADVISED TO RETURN. FASTING: YES RAC (test code = Performing Organization RAC) Information: Site ID: [facility] Name: [facility] Lab Address: [address] [place] [address] Director: [facility] Center[facility]-reactive [id number] 13:37:00 Test Item Value Reference Range Interpretation Comments CRP (test code = 1.1 mg/L <=8.0 1988-02) IAN (test code = FASTING:YESCOLLECTION KIT IAN) GIVEN TO PATIENT. PATIENT ADVISED TO RETURN. FASTING: YES RAC (test code = Performing Organization RAC) Information: Site ID: [facility] Name: [facility] Lab Address: [address] [place] [address] Director: [facility] CenterVaricella zoster virus Ab, [id number] 13:37:00 Test Item Value Reference Range Interpretation Comments VZV IgG 3948.00 index Index Interpre tation (test code = --------- 5403-1) ------- <135.00 Negativ e - Antibody not de tected 135.00 - 164.99 Equivocal > or = 165.00 Positive - Antibody detect ed A positive result indicates that the patient has ant ibody to VZV but does not differentiate b etween an active or pa st infection. The clinical diagno sis must be interpr eted in conjunction wit h the clinical signs and symptoms of the patient. This a ssay reliably measur es immunity due to previous infect ion but may not be sens itive enough to detec t antibodies daniel sena by vaccination. Th us, a negative result in a vaccinated wilbert vidual does not necess arily indicate susceptibility to VZV infection. A mo re sensitive test for vaccination-ind uced immunity is Beatriz icella Zoster Virus An tibody Immunity Screen , ACIF. IAN (test FASTING:YESCOLLECTIO code = IAN) N KIT GIVEN TO PATIENT. PATIENT ADVISED TO RETURN. FASTING: YES RAC (test Performing code = RAC) Organization Information: Site ID: IG [facility] Address: [address] [place] [address] Director: Dr. Alfonso Rodney [facility] [id number] 13:37:00 Test Item Value Reference Range Interpretation Comments Sedimentation rate 11 mm/h See_Comment [Automat ed (test code = 4537-7) message ] The system which generated this result transmitted reference range : < OR = 20. The reference range was not used to interpret this result as normal/abnormal . IAN (test code = FASTING:YESCOLLECT IAN) ION KIT GIVEN TO PATIENT. PATIENT ADVISED TO RETURN. FASTING: YES RAC (test code = Performing RAC) Organization Information: Site ID: RGA [facility] Address: [address] [place] [phone] Director: Alfonso Rodney [facility] B surface [id number] 13:37:00 Test Item Value Reference Range Interpretation Comments Hepatitis B surface NON-REACTIVE NON-REACTIVE Ag (test code = 5196-1) IAN (test code = IAN) FASTING:YESCOLLECTION KIT GIVEN TO PATIENT. PATIENT ADVISED TO RETURN. FASTING: YES RAC (test code = RAC) Performing Organization Information: Site ID: RGA [email or web address] Address: [address] [place] [phone] Director: Alfonso Rodney [facility] B surface [id number] 13:37:00 Test Item Value Reference Range Interpretation Comments Hepatitis B surface Ab REACTIVE NON-REACTIVE A (test code = 53597-9) IAN (test code = IAN) FASTING:YESCOLLECTION KIT GIVEN TO PATIENT. PATIENT ADVISED TO RETURN. FASTING: YES RAC (test code = RAC) Performing Organization Information: Site ID: RGA [email or web address] Lab Address: [address] [place] [phone] Director: Alfonso Rodney Lab Interpretation (test Abnormal code = 51243-9) [facility] 25 hydroxy [id number] 13:37:00 Test Item Value Reference Range Interpretation Comments Vitamin D, 41 ng/mL 30-100 Vitamin D Statu s 25-hydroxy (test 25-OH Vitam in D: code = 1989-3) Deficiency: < 20 ng/mLInsufficie ncy : 20 - 29 ng/mLOptimal: > or = 30 ng/mL F or 25-OH Vitamin D testing on patients on D2-supplementat ion and patients fo r whom quantitati on of D2 and D3 fractions is required, the QuestAssureD(TM )25 -OH VIT D, (D2,D3), LC/MS/ MS is recommended: order code 9288 8 (patients >2yrs).See Note 1 Note 1 For additional information, please refer to http://educatio n.Q uestDiagnostics .co m/faq/DLW678 (T his link is being provided for informational/e estefani ational purpose s only.) IAN (test code = FASTING:YESCOLLECTIO IAN) N KIT GIVEN TO PATIENT. PATIENT ADVISED TO RETURN. FASTING: YES RAC (test code = Performing RAC) Organization Information: Site ID: A [email or web address] Lab Address: [address] [place] [address] Director[facility] B core antibody [id number] 13:37:00 Test Item Value Reference Range Interpretation Comments Hepatitis B core NON-REACTIVE NON-REACTIVE total Ab (test code = 14979-1) IAN (test code = IAN) FASTING:YESCOLLECTION KIT GIVEN TO PATIENT. PATIENT ADVISED TO RETURN. FASTING: YES RAC (test code = RAC) Performing Organization Information: Site ID: [facility] Name: [email or web address] Lab Address: [address] [place] [address] Director: [facility] CenterQuantiFERON®-TB Gold Plus, 1 [id number] 13:37:00 Test Item Value Reference Interpretation Comments Range Quantiferon TB NEGATIVE NEGATIVE Negative test result. gold plus (test M. tuberculo sis code = 01709-2) complex infe ction unlikely. Quantiferon NIL 0.03 IU/mL (test code = 30720-1) Quantiferon 9.20 IU/mL mitogen minus NIL (test code = 15755-5) Quantiferon plus 0.00 IU/mL TB1 minus NIL (test code = 05466-6) Quantiferon plus 0.01 IU/mL The Nil tu be value TB2 minus NIL reflects the (test code = background 55666-4) interferongamma immune response of the patient's blood sample.This kirk ue has been subtracted from the patient'sdi splayed TB and Mitogen results. Lower than expected result s with the Mitogen tubeprevent false-negative Quantiferon rommel dings bydetecting a p atient with a potentia l immunesuppressi ve condition and/o r suboptimal pre-analyticals pecimen handling. The T B1 Antigen tube is coated with theM. tuberculosis-sp ecific antigens design ed to elicitresponses from TB antigen prim ed CD4+ helperT-lymphoc ytes. The TB2 Antigen tube is coated with theM. tuberculosis-sp ecific antigens design ed to elicitresponses from TB antigen prim ed CD4+ helper and CD8+cytotoxic T-lymphocytes. For additional information, pl ease refer tohttps://educa tion.BeeBillion/faq /INE262(This li nk is being provided for informational/e ducatio nal purposes on ly.) IAN (test code = FASTING:YESCOLLEC IAN) TION KIT GIVEN TO PATIENT. PATIENT ADVISED TO RETURN. FASTING: YES RAC (test code = Performing RAC) Organization Information: Site ID: RGA [facility] Address: [address] [place] [phone] Director: Alfonso Laurie HoffRonelUC [facility][U] XRAY FOOT MIN 3 VWS LEFT [id number] 11:26:00Images acquired, not reported on this accession number.[facility] PhysiciansPost Op Promis 29 [id number] 12:23:48 Test Item Value Reference Range Interpretation Comments Pain Interference: (test code = Pain 56 1 N Interference:) Pain Intensity: (test code = Pain 40.5 1 N Intensity:) Physical Function: (test code = 39.4 1 N Physical Function:) Satisfaction Role: (test code = 49 1 N Satisfaction Role:) [facility][U] XRAY FOOT MIN 3 VWS LEFT [id number] 11:44:00Images acquired, not reported on this accession number.[facility]
[2023-07-07 17:07] LABS: Absolute Lymphocytes (CBC) 0.7 K/uL (0.7-4.9); Hematocrit 33.1 % (39.6-49.0); Lymphocytes % 5.9 % (15.3-44.8); MCV 72.2 fL (80-100); Platelets 609 thou/uL (152-406); RBC Red Blood Cell Count 4.58 M/uL (4.33-5.43)
[2023-07-07] MEDS ORDERED: ONDANSETRON 4 MG/2 ML VIAL ONE (17:10)
[2023-07-07] MEDS ORDERED: METHYLPREDNISOLONE 125 MG INJ ONE (17:10)
[2023-07-07] MEDS ORDERED: NA CHLORIDE 0.9% 1,000 ML ONE ×2 (17:10→18:18)
[2023-07-07] MEDS ORDERED: MORPHINE 2 MG/ML SYR ONE (17:10)
[2023-07-07] MEDS ORDERED: FAMOTIDINE 20 MG/2 ML VIAL IV ONE (17:11)
[2023-07-07] MEDS ORDERED: METRONIDAZOLE 500mg IVPB 500 MG/100 ML BAG IV ONE (17:11)
[2023-07-07] MEDS ORDERED: CIPROFLOXACIN 400mg IV 400 MG/200 ML BAG IV ONE (17:11)
[2023-07-07 17:12] LABS: Protime INR 1.45
--- NOTE | 2023-07-07 17:42 | RAD REPORT ---
EXAM DESCRIPTION: RAD - Chest Single View - 07/07/2023 5:36 pm CLINICAL HISTORY: pain Chest pain. COMPARISON: Chest Pa And Lat (2 Views) dated 07/16/2021; Abdomen 1 View (KUB) dated 01/24/2019; Abdom en 1 View (KUB) dated 11/09/2017; ABDOMEN 1 VIEW KUB dated 09/22/2015 FINDINGS: Portable technique limits examination quality. The lungs are grossly clear. The heart is normal in size. No displaced fractures. IMPRESSION: No acute intrathoracic process suspected.
[2023-07-07 17:47] LABS: Albumin 2.2 g/dL (3.4-5.0); Bilirubin Direct 0.2 mg/dL (0-0.2); Bilirubin Indirect, Calculated 0.3 mg/dL (0.2-0.8); Bilirubin Total 0.5 mg/dL (0.2-1.0); Magnesium 2.4 mg/dL (1.6-2.4); Potassium 2.7 mEq/L (3.5-5.1); Protein, Total 7.1 g/dL (6.4-8.2); Troponin High Sensitivity 7.4 pg/mL (<58.9)
--- NOTE | 2023-07-07 17:57 | RAD REPORT ---
EXAM DESCRIPTION: US - Abdomen Exam Limited - 07/07/2023 5:49 pm CLINICAL HISTORY: abdominal pain COMPARISON: Abdomen Exam Complete dated 03/31/2018 FINDINGS: The gallbladder demonstrates no gallstones. Moderate gallbladder sludge. No pericholecysti c fluid or gallbladder wall thickening. The common bile duct is normal measuring 4 mm. The liver demonstrates no findings of intrahepatic biliary dilatation. IMPRESSION: No gallbladder stones or biliary dilatation. Moderate gallbladder sludge.
--- NOTE | 2023-07-07 18:47 | ER ---
Nurse's Notes [facility] Name: Darrian Jacob Age: 53 yrs Sex: Male : 1970 Arrival Date: 07/07/2023 Time: 16:31 Bed 12 Private MD: Diagnosis: Other ulcerative colitis with abscess;Hypo-osmolality and hyponatremia;Hypokalemia;Dehydration;Ulcerative colitis, unspecified with abscess-very large 21x11 cm thick walled abscess, simoid abscess Presentation: 07/07 16:33 Chief complaint: Patient states: diarrhea, weakness, fatigue, no pain, hx of UC, not db eating for couple weeks. Coronavirus screen: Client presents with at least one sign or symptom that may indicate coronavirus-19. Ebola Screen: Patient negative for fever greater than or equal to 101.5 degrees Fahrenheit, and additional compatible Ebola Virus Disease symptoms Patient denies exposure to infectious person. Patient denies travel to an Ebola-affected area in the 21 days before illness onset. No symptoms or risks identified at this time. Risk Assessment: Do you want to hurt yourself or someone else? Patient reports no desire to harm self or others. 16:33 Method Of Arrival: EMS: [facility] db 16:33 Acuity: DARSHANA 3 db 16:35 Initial Sepsis Screen: Does the patient meet any 2 criteria? No. Patient's initial db sepsis screen is negative. Does the patient have a suspected source of infection? No. Patient's initial sepsis screen is negative. 20:11 Onset of symptoms was June 27, 2023. ha1 Historical: - Allergies: 16:43 No Known Allergies; iw - Home Meds: 16:43 Rinvoq oral [Active]; iw - PMHx: 16:43 Anxiety; Kidney stones; ulcerative colitis (Kidney stones); iw - Immunization history:: Adult Immunizations unknown. - Social history:: Smoking status: unknown. Screenin:31 [facility] ED Fall Risk Assessment (Adult) History of falling in the last 3 months, db including since admission No falls in past 3 months (0 pts) Score/Fall Risk Level 0 - 2 = Low Risk Oriented to surroundings, Maintained a safe environment. Abuse screen: Denies threats or abuse. Denies injuries from another. Nutritional screening: No deficits noted. Tuberculosis screening: No symptoms or risk factors identified. Assessment: 17:00 Reassessment: Patient appears in no apparent distress at this time. Patient and/or db family updated on plan of care and expected duration. Pain level reassessed. Patient is alert, oriented x 3, equal unlabored respirations, skin warm/dry/pink. General: Appears in no apparent distress. comfortable, Behavior is calm, cooperative. Pain: Complains of pain in abdomen. Neuro: Level of Consciousness is awake, alert, obeys commands, Oriented to person, place, time, situation. GI: Abdomen is flat, non-distended, Reports diarrhea. 17:32 Reassessment: METER MAINTENANCE PERSON IS AT PATIENT BEDSIDE. db 17:40 Reassessment: Patient appears in no apparent distress at this time. Patient and/or db family updated on plan of care and expected duration. Pain level reassessed. Patient is alert, oriented x 3, equal unlabored respirations, skin warm/dry/pink. 18:18 Reassessment: PATIENT RETURNED FROM CT. db 18:30 Reassessment: Patient appears in no apparent distress at this time. Patient and/or db family updated on plan of care and expected duration. Pain level reassessed. Patient is alert, oriented x 3, equal unlabored respirations, skin warm/dry/pink. 19:30 General: Appears comfortable, Behavior is calm, cooperative. Pain: Denies pain. Neuro: ha1 Level of Consciousness is awake, alert, obeys commands, Oriented to person, place, time, situation. Cardiovascular: Patient's skin is warm and dry. Respiratory: Airway is patent Respiratory effort is even, unlabored, Respiratory pattern is regular, symmetrical. GI: Abdomen is round. 20:00 Reassessment: Patient and/or family updated on plan of care and expected duration. Pain ha1 level reassessed. Patient is alert, oriented x 3, equal unlabored respirations, skin warm/dry/pink. Patient denies pain at this time. Patient states feeling better. Patient states symptoms have improved. Vital Signs: 16:35 BP 103 / 90; Pulse 104; Resp 16; Temp 98.1; Pulse Ox 100% on R/A; Pain 0/10; db 16:45 BP 108 / 80; Pulse 91; Resp 16; Pulse Ox 98% on R/A; db 17:30 BP 112 / 73; Pulse 77; Resp 16; Pulse Ox 100% on R/A; db 18:13 BP 115 / 66; Pulse 80; Resp 18; Pulse Ox 99% on R/A; db 18:30 BP 109 / 73; Pulse 89; Resp 16; Pulse Ox 100% on R/A; db 19:30 BP 104 / 73; Pulse 81; Resp 16 S; Pulse Ox 100% on R/A; ha1 16:35 Pain Scale: Adult db ED Course: 16:32 Patient arrived in ED. db 16:33 Chandan Vides MD is Attending Physician. tyra 16:34 Triage completed. db 16:43 Malu Estrella, RN is Primary Nurse. db 16:44 Arm band placed on. iw 16:45 Inserted saline lock: 22 gauge in right antecubital area, using aseptic technique. iw Blood collected. 17:13 EKG done, by ED staff, reviewed by Chandan Vides MD. db 17:38 Chest Single View In Process Unspecified. EDMS 17:40 Patient has correct armband on for positive identification. Bed in low position. Call db light in reach. Side rails up X 1. Client placed on continuous cardiac and pulse oximetry monitoring. NIBP monitoring applied. Warm blanket given. 17:51 Abdomen Exam Limited In Process Unspecified. EDMS 18:15 Abdomen In Process Unspecified. EDMS 18:38 Kosta Lucas MD is Hospitalizing Provider. tyra 20:09 No provider procedures requiring assistance completed. Patient admitted, IV remains in ha1 place. 20:11 Provided Education on: NEED FOR ADMIT . ha1 22:30 Primary Nurse role handed off by Malu Estrella, RN sb4 07/08 01:26 Edinson Smith, ELIZABETH is Primary Nurse. bp Administered Medications: 07/07 20:08 Discontinued: ns 0.9% with kcl20 meq/l 1000 ml IV at 100 ml/hr continuous tyra 17:00 Drug: NS 0.9% IV 1000 ml IV at 1 bolus Per protocol; 1000 mL bolus Route: IV; Rate: 1 db bolus; Site: right antecubital; 18:00 Follow up: Response: No adverse reaction; IV Status: Completed infusion; IV Intake: db 1000ml 17:00 Drug: MethylPrednisoLONE IVP 125 mg IVP once Route: IVP; Site: right antecubital; db 18:00 Follow up: Response: No adverse reaction db 17:03 Drug: morphine IVP or IV 2 mg IVP once over 4 mins Route: IVP; Infused Over: 4 mins; db Site: right antecubital; 18:00 Follow up: Response: No adverse reaction db 17:03 Drug: Ondansetron IVP 4 mg IVP once; over 2 minutes Route: IVP; Site: right antecubital;db 18:00 Follow up: Response: No adverse reaction db 17:05 Drug: Famotidine IVP 20 mg IVP once; dilute with 10 mL 0.9% NaCl; give over 2 minutes db Route: IVP; Site: right antecubital; 18:00 Follow up: Response: No adverse reaction db 17:06 Drug: metroNIDAZOLE IVPB 500 mg 100 ml IVPB at 200 ml/hr once over 30 mins Volume: 100 db ml; Route: IVPB; Rate: 200 ml/hr; Infused Over: 30 mins; Site: right antecubital; 17:48 Follow up: Response: No adverse reaction; IV Status: Completed infusion; IV Intake: db 100ml 17:48 Drug: Ciprofloxacin IVPB 400 mg 200 ml IVPB once over 60 mins Volume: 200 ml; Route: db IVPB; Infused Over: 60 mins; Site: right antecubital; 18:50 Follow up: Response: No adverse reaction; IV Status: Completed infusion; IV Intake: db 100ml 18:18 Drug: NS 0.9% IV 1000 ml IV at 125 ml/hr continuous Route: IV; Rate: 125 ml/hr; Site: db right antecubital; 18:50 Drug: Potassium Chloride IV 20 mEq IV at per protocol once; administer over 1-2 hours db Route: IV; Rate: per protocol; Site: left antecubital; 18:50 Drug: NS 0.9% with KCl IV 20 mEq/L 1000 ml IV at 100 ml/hr continuous Route: IV; Rate: db 100 ml/hr; Site: left antecubital; 18:55 Drug: Potassium PO Effervescent Tablet 50 mEq PO once; dissolve in 4 ounces of water or db juice Route: PO; 19:10 Follow up: Response: No adverse reaction db 19:52 Drug: Potassium Chloride IV 20 mEq IV at per protocol once; administer over 1-2 hours ha1 {Note: ORDER TO BE ADMINISTERED IN PATIENTS ROOM UPSTAIRS WHEN THE OTHER BAG OF POTASSIUM IS COMPLETE .} Route: IV; Rate: per protocol; Site: left antecubital; 20:00 Drug: NS 0.9% IV 1000 ml IV at 125 ml/hr continuous Route: IV; Rate: 125 ml/hr; Site: ha1 right antecubital; 20:15 Not Given (Physician Discretion): potassium [id number] mmol IV at per protocol once; ha1 dose as phosphate; infuse over 4-6 hours (mix in 250 mL NS) Medication: 17:40 VIS not applicable for this client. db Intake: 17:48 IV: 100ml; Total: 100ml. db 18:00 IV: 1000ml; Total: 1100ml. db 18:50 IV: 100ml; Total: 1200ml. db Outcome: 18:47 Decision to Hospitalize by Provider. tyra 20:09 Admitted to Med/surg accompanied by tech, via stretcher, room 225, with chart, Report ha1 called to ELIZABETH MARRUFO 20:09 Condition: stable 20:09 Discharge instructions given to patient, Instructed on the need for admit, Demonstrated understanding of instructions, 20:16 Patient left the ED. ha1 22:32 ER care complete, transfer ordered by MD. [email or web address] 07/08 01:05 Transferred by ground EMS to [facility], Transfer form completed. bp Note: REPORT TO GAYATHRI JOHNSON 01:26 Patient left the ED. bp Signatures: Dispatcher [employer] Chandan Carlson MD MD cha Williams, Irene, Edinson Noriega RN, RN RN bp Ayala, Heidy, RN RN [facility] Malu Estrella RN RN db Brown, Sophia, PA-C PAMakeda [email or web address]
--- NOTE | 2023-07-07 18:47 | EDPHYS ---
Physician Documentation [facility] Name: Darrian Jacob Age: 53 yrs Sex: Male : 1970 Arrival Date: 07/07/2023 Time: 16:31 Bed 12 Private MD: WANDA Physician Chandan Vides HPI: 07/07 18:30 This 53 yrs old Male presents to ER via EMS with complaints of Diarrhea, tyra General Weakness. 18:30 The patient presents to the emergency department with nausea, diarrhea. Onset: The tyra symptoms/episode began/occurred 7 day(s) ago. Possible causes: flare up of bowel problem, ulcerative colitis. The symptoms are aggravated by nothing. The symptoms are alleviated by nothing. Associated signs and symptoms: Pertinent positives: abdominal pain, diarrhea, nausea. Severity of symptoms: At their worst the symptoms were moderate in the emergency department the symptoms are unchanged. The patient has experienced similar episodes in the past, multiple times. Historical: - Allergies: 16:43 No Known Allergies; iw - Home Meds: 16:43 Rinvoq oral [Active]; iw - PMHx: 16:43 Anxiety; Kidney stones; ulcerative colitis (Kidney stones); iw - Immunization history:: Adult Immunizations unknown. - Social history:: Smoking status: unknown. ROS: 18:33 Constitutional: Negative for fever, chills, and weight loss, Eyes: Negative for injury, tyra pain, redness, and discharge, ENT: Negative for injury, pain, and discharge, Neck: Negative for injury, pain, and swelling, Cardiovascular: Negative for chest pain, palpitations, and edema, Respiratory: Negative for shortness of breath, cough, wheezing, and pleuritic chest pain, Back: Negative for injury and pain, : Negative for injury, bleeding, discharge, and swelling, MS/Extremity: Negative for injury and deformity, Skin: Negative for injury, rash, and discoloration, Psych: Negative for depression, anxiety, suicide ideation, homicidal ideation, and hallucinations, Allergy/Immunology: Negative for hives, rash, and allergies, Endocrine: Negative for neck swelling, polydipsia, polyuria, polyphagia, and marked weight changes, 18:33 Abdomen/GI: Positive for nausea, diarrhea, abdominal cramps, anorexia, Exam: 18:33 Constitutional: This is a well developed, well nourished patient who is awake, alert, tyra and in no acute distress. Head/Face: Normocephalic, atraumatic. Eyes: Pupils equal round and reactive to light, extra-ocular motions intact. Lids and lashes normal. Conjunctiva and sclera are non-icteric and not injected. Cornea within normal limits. Periorbital areas with no swelling, redness, or edema. ENT: Nares patent. No nasal discharge, no septal abnormalities noted. Tympanic membranes are normal and external auditory canals are clear. Oropharynx with no redness, swelling, or masses, exudates, or evidence of obstruction, uvula midline. Mucous membranes moist. Neck: Trachea midline, no thyromegaly or masses palpated, and no cervical lymphadenopathy. Supple, full range of motion without nuchal rigidity, or vertebral point tenderness. No Meningismus. Chest/axilla: Normal chest wall appearance and motion. Nontender with no deformity. No lesions are appreciated. Cardiovascular: Regular rate and rhythm with a normal S1 and S2. No gallops, murmurs, or rubs. Normal PMI, no JVD. No pulse deficits. Respiratory: Lungs have equal breath sounds bilaterally, clear to auscultation and percussion. No rales, rhonchi or wheezes noted. No increased work of breathing, no retractions or nasal flaring. Abdomen/GI: Soft, non-tender, with normal bowel sounds. No distension or tympany. No guarding or rebound. No evidence of tenderness throughout. Back: No spinal tenderness. No costovertebral tenderness. Full range of motion. Male : Normal genitalia with no discharge or lesions. MS/ Extremity: Pulses equal, no cyanosis. Neurovascular intact. Full, normal range of motion. Neuro: Awake and alert, GCS 15, oriented to person, place, time, and situation. Cranial nerves II-XII grossly intact. Motor strength 5/5 in all extremities. Sensory grossly intact. Cerebellar exam normal. Normal gait. Psych: Awake, alert, with orientation to person, place and time. Behavior, mood, and affect are within normal limits. 18:33 ECG was reviewed by the Attending Physician. 18:33 Skin: Appearance: Color: pale, Temperature: Vital Signs: 16:35 BP 103 / 90; Pulse 104; Resp 16; Temp 98.1; Pulse Ox 100% on R/A; Pain 0/10; db 16:45 BP 108 / 80; Pulse 91; Resp 16; Pulse Ox 98% on R/A; db 17:30 BP 112 / 73; Pulse 77; Resp 16; Pulse Ox 100% on R/A; db 18:13 BP 115 / 66; Pulse 80; Resp 18; Pulse Ox 99% on R/A; db 18:30 BP 109 / 73; Pulse 89; Resp 16; Pulse Ox 100% on R/A; db 19:30 BP 104 / 73; Pulse 81; Resp 16 S; Pulse Ox 100% on R/A; ha1 16:35 Pain Scale: Adult db MDM: 16:33 Patient medically screened. tyra 18:35 Differential diagnosis: Nonspecific abd pain, viral gastroenteritis, gastroenteritis, tyra bowel obstruction, cholecystitis, diverticulitis, gastritis, Hepatitis, Mesenteric ischemia or infarction, non-specific abd pain, pancreatitis, Peptic Ulcer Disease, Ureterolithiasis, urinary tract infection. Differential Diagnosis sepsis. Data reviewed: vital signs, nurses notes, lab test result(s), EKG, radiologic studies, CT scan, plain films. Consideration of Admission/Observation Patient was admitted/placed on observation. Escalation of care including admission/observation considered. I considered the following discharge prescriptions or medication management in the emergency department Medications were administered in the Emergency Department. See MAR. Test considered but Not performed: MRI: no mrcp. Historians other than the Patient: pt well informed. Care significantly affected by the following chronic conditions: Hypertension, anxiety, kidney stones, uc. Counseling: I had a detailed discussion with the patient and/or guardian regarding the historical points, exam findings, and any diagnostic results supporting the discharge/admit diagnosis, lab results, radiology results, the need for further work-up and treatment in the hospital. 07/07 16:36 Order name: Basic Metabolic Panel [facility] 07/07 16:36 Order name: CBC with Diff [facility] 07/07 16:36 Order name: LFT's [facility] 07/07 16:36 Order name: Magnesium [facility] 07/07 16:36 Order name: NT PRO-BNP [facility] 07/07 16:36 Order name: PT-INR [facility] 07/07 16:36 Order name: Troponin HS [facility] 07/07 16:36 Order name: Lipase [facility] 07/07 17:03 Order name: Basic Metabolic Panel; Complete Time: 18:23 EDMS 07/07 17:03 Order name: Liver (Hepatic) Function; Complete Time: 18:23 EDMO 07/07 17:03 Order name: Troponin High Sensitivity; Complete Time: 18:23 EDMO 07/07 17:03 Order name: NT PRO-BNP; Complete Time: 18:23 EDMO 07/07 17:03 Order name: Magnesium; Complete Time: 18:23 EDMO 07/07 17:03 Order name: Lipase; Complete Time: 18:23 EDMO 07/07 17:03 Order name: CBC with Automated Diff; Complete Time: 17:18 EDMO 07/07 17:03 Order name: Protime (+INR); Complete Time: 17:18 EDMO 07/07 17:18 Order name: AMMONIA; Complete Time: 20:04 [facility] 07/07 18:25 Order name: Osmolality, Serum; Complete Time: 20:04 [facility] 07/07 18:25 Order name: Urine Sodium Random; Complete Time: 20:04 [facility] 07/07 18:25 Order name: Urine Osmolality; Complete Time: 20:04 [facility] 07/07 18:27 Order name: Phosphorus; Complete Time: 20:04 [facility] 07/07 18:28 Order name: ABG; Complete Time: 20:04 [facility] 07/07 22:53 Order name: Lactate w/ 2H reflex if indic. [facility] 07/07 22:53 Order name: BMP [facility] 07/07 17:06 Order name: Abdomen ; Complete Time: 18:59 [facility] 07/07 17:06 Order name: Chest Single View; Complete Time: 18:23 [facility] 07/07 17:06 Order name: Abdomen Exam Limited; Complete Time: 18:23 [facility] 07/07 19:16 Order name: CONS Physician Consult [facility] 07/07 16:36 Order name: Cardiac monitoring; Complete Time: 17:29 [facility] 07/07 16:36 Order name: EKG - Nurse/Tech; Complete Time: 17:29 [facility] 07/07 16:36 Order name: IV Saline Lock; Complete Time: 17:04 [facility] 07/07 16:36 Order name: Labs collected and sent; Complete Time: 17:04 [facility] 07/07 16:36 Order name: O2 Per Protocol; Complete Time: 17:04 tyra 07/07 16:36 Order name: O2 Sat Monitoring; Complete Time: 17:04 [facility] 07/07 18:27 Order name: IV Saline Lock - Large Bore; Complete Time: 19:08 trya EC:33 Rate is 82 beats/min. Rhythm is regular. QRS [place] is Normal. ND interval is normal. QRS tyra interval is normal. QT interval is normal. T waves are Flattened. No ST changes noted. Clinical impression: NSR w/ Non-specific ST/T Changes and Suggests hypokalemia. Interpreted by me. Administered Medications: 20:08 Discontinued: ns 0.9% with kcl20 meq/l 1000 ml IV at 100 ml/hr continuous tyra 17:00 Drug: NS 0.9% IV 1000 ml IV at 1 bolus Per protocol; 1000 mL bolus Route: IV; Rate: 1 db bolus; Site: right antecubital; 18:00 Follow up: Response: No adverse reaction; IV Status: Completed infusion; IV Intake: db 1000ml 17:00 Drug: MethylPrednisoLONE IVP 125 mg IVP once Route: IVP; Site: right antecubital; db 18:00 Follow up: Response: No adverse reaction db 17:03 Drug: morphine IVP or IV 2 mg IVP once over 4 mins Route: IVP; Infused Over: 4 mins; db Site: right antecubital; 18:00 Follow up: Response: No adverse reaction db 17:03 Drug: Ondansetron IVP 4 mg IVP once; over 2 minutes Route: IVP; Site: right antecubital;db 18:00 Follow up: Response: No adverse reaction db 17:05 Drug: Famotidine IVP 20 mg IVP once; dilute with 10 mL 0.9% NaCl; give over 2 minutes db Route: IVP; Site: right antecubital; 18:00 Follow up: Response: No adverse reaction db 17:06 Drug: metroNIDAZOLE IVPB 500 mg 100 ml IVPB at 200 ml/hr once over 30 mins Volume: 100 db ml; Route: IVPB; Rate: 200 ml/hr; Infused Over: 30 mins; Site: right antecubital; 17:48 Follow up: Response: No adverse reaction; IV Status: Completed infusion; IV Intake: db 100ml 17:48 Drug: Ciprofloxacin IVPB 400 mg 200 ml IVPB once over 60 mins Volume: 200 ml; Route: db IVPB; Infused Over: 60 mins; Site: right antecubital; 18:50 Follow up: Response: No adverse reaction; IV Status: Completed infusion; IV Intake: db 100ml 18:18 Drug: NS 0.9% IV 1000 ml IV at 125 ml/hr continuous Route: IV; Rate: 125 ml/hr; Site: db right antecubital; 18:50 Drug: Potassium Chloride IV 20 mEq IV at per protocol once; administer over 1-2 hours db Route: IV; Rate: per protocol; Site: left antecubital; 18:50 Drug: NS 0.9% with KCl IV 20 mEq/L 1000 ml IV at 100 ml/hr continuous Route: IV; Rate: db 100 ml/hr; Site: left antecubital; 18:55 Drug: Potassium PO Effervescent Tablet 50 mEq PO once; dissolve in 4 ounces of water or db juice Route: PO; 19:10 Follow up: Response: No adverse reaction db 19:52 Drug: Potassium Chloride IV 20 mEq IV at per protocol once; administer over 1-2 hours ha1 {Note: ORDER TO BE ADMINISTERED IN PATIENTS ROOM UPSTAIRS WHEN THE OTHER BAG OF POTASSIUM IS COMPLETE .} Route: IV; Rate: per protocol; Site: left antecubital; 20:00 Drug: NS 0.9% IV 1000 ml IV at 125 ml/hr continuous Route: IV; Rate: 125 ml/hr; Site: ha1 right antecubital; 20:15 Not Given (Physician Discretion): potassium [id number] mmol IV at per protocol once; ha1 dose as phosphate; infuse over 4-6 hours (mix in 250 mL NS) Disposition Summary: 07/07/23 22:32 Transfer Ordered Notes: Transfer Location: [facility] sb4 Reason: Higher level of care sb4 Condition: Fair(07/07/23 22:32) sb4 Problem: new(07/07/23 22:32) sb4 Symptoms: are unchanged(07/07/23 22:32) sb4 Accepting Physician: Dr. Guido(07/08/23 01:26) bp Diagnosis - Other ulcerative colitis with abscess sb4 - Hypo-osmolality and hyponatremia(07/07/23 22:32) sb4 - Hypokalemia(07/07/23 22:32) sb4 - Dehydration tyra - Ulcerative colitis, unspecified with abscess - very large 21x11 cm thick walled tyra abscess, simoid abscess Forms: - Medication Reconciliation Form sb4 - SBAR form sb4 Signatures: Dispatcher [employer] EDMS Kay Montano, RN Chandan Ramos MD MD cha Williams, Irene, RN Edinson Noriega, RN RN bp Sia Myers, RN RN ha1 Malu Estrella, RN RN Daisy Rucker, PA-C PA-C sb4 Jenifer Cardoso, STEAM BOILER FIREMAN STEAM BOILER FIREMAN cm12 Corrections: (The following items were deleted from the chart) 17:57 17:54 Abdomen Pelvis W Con+CT.RAD.BRZ ordered. EDMS EDMS 17:58 17:54 Chest Single View+RAD.RAD.BRZ ordered. EDMS EDMS 18:01 17:54 Abdomen Limited+US.RAD.BRZ ordered. EDMS EDMS 19:27 18:47 tyra mw 22:31 18:47 Inpatient Admission tyra sb4 22:31 18:47 Kosta Lucas tyra sb4 22:31 18:47 Telemetry/MedSurg (Inpatient) tyra sb4 22:31 18:47 Fair tyra sb4 22:31 18:47 an acute exacerbation tyra sb4 22:31 18:47 have worsened tyra sb4 22:31 18:47 Standard tyra sb4 22:31 18:47 Hypokalemia tyra sb4 22:31 18:47 Hypo-osmolality and hyponatremia tyra sb4 22:31 18:47 Anemia, unspecified tyra sb4 22:31 18:47 Elevated white blood cell count tyra sb4 22:31 18:47 Other ulcerative colitis with other complication tyra sb4 22:31 19:27 225 mw sb4 22:38 22:[address] [facility] 07/08 01:26 10 22:38 Dr. Hay mary bp
[2023-07-07] MEDS ORDERED: KCL 20 MEQ/100 mL IVPB 200 ML IV ONE (18:51)
[2023-07-07] MEDS ORDERED: POTASSIUM 25 MEQ EFFERV TAB ONE (18:51)
[2023-07-07] MEDS ORDERED: NS KCL 20MEQ 1,000 ML IV ONE (18:51)
--- NOTE | 2023-07-07 18:54 | RAD REPORT ---
EXAM DESCRIPTION: CTAbdomen Pelvis W Contrast - 07/07/2023 6:13 pm CLINICAL HISTORY: Abdominal pain. abdominal pain COMPARISON: No comparisons TECHNIQUE: Biphasic CT imaging of the abdomen and pelvis was performed with 100 ml non-ionic IV cont rast. All CT scans are performed using dose optimization technique as appropriate and may include automated exposure control or mA/KV adjustment according to patient size. FINDINGS: The lung bases are clear. Mild fatty liver. The spleen, pancreas, left adrenal gland are normal. 15 mm right adrenal nodule is present likely representing an adenoma. Bilateral renal calculi are present without hydronephrosis. There is a large air and fluid collection seen in the left anterolateral abdomen measuring 21 cm in c raniocaudad dimension, 10 cm in anterior-posterior dimension and approximately 6 cm transverse dimens ion. This appears to potentially arise from the left lower quadrant of the sigmoid colon with there i s focally prominent thickening of the colon with a somewhat nodular in surface and several diverticul a. Inflammatory changes in the region are minimal. No free air in the abdomen pelvis. No bowel obstru ction. No suspicious bony findings. Bilateral fat containing inguinal hernias, larger on the right. IMPRESSION: Very large intra-abdominal thick walled collection containing air and fluid in the left abdomen. This maximally measures 21 cm in craniocaudad dimension. Most likely this is an abscess. Thi s could be result of prior colitis/diverticulitis or perforated malignancy in the sigmoid colon.
[2023-07-07 19:06] LABS: Arterial Blood Carboxyhemoglob 1.4 % (0-1.5); Blood Gas Oxyhemoglobin 92.2 % (94-97); Blood O2 Saturation 94.8 % (92-98.5)
--- NOTE | 2023-07-07 19:10 | P.HP ---
Certification for Inpatient Patient admitted to: Inpatient With expected LOS: <2 Midnights Patient will require the following post-hospital care: None Practitioner: I am a practitioner with admitting privileges, knowledge of patient current condition, hospital course, and medical plan of care. Services: Services provided to patient in accordance with Admission requirements found in Title 42 Section 412.3 of the Code of Federal Regulations Patient History Date of Service: 07/07/23 Reason for admission: Diarrhea History of Present Illness: 53-year-old male with a past medical history of ulcerative colitis, anxiety, kidney stones, presents to the emergency room with diarrhea. He reports associated nausea. He reports symptoms started 3 weeks ago. He was referred to the emergency room by Dr. Chu. Reports possible ulcerative colitis flare. He reports diarrhea with several loose stools per day. Small amount of bloody stools. He reports associated fatigue. He denies fever, vomiting. Vital signs 5 BP 103 / 90; Pulse 104; Resp 16; Temp 98.1; Pulse Ox 100% on R/A. CT of the abdomen pelvis IMPRESSION: Very large intra-abdominal thick walled collection containing air and fluid in the left abdomen. This maximally measures 21 cm in craniocaudad dimension. Most likely this is an abscess. This could be result of prior colitis/diverticulitis or perforated malignancy in the sigmoid colon. Abdominal ultrasound IMPRESSION: No gallbladder stones or biliary dilatation.Moderate gallbladder sludge. Chest x- ray IMPRESSION: No acute intrathoracic process suspected. Laboratory evaluation leukocytosis 12.70 left shift 91.9, microcytic anemia 11.2, 33.1, hyponatremia 128 hypokalemia two-point BNP 184 hypoalbumin 2.2 urine sodium, pending. EKG Rate is 82 beats/min. Rhythm is regular. QRS [place] is Normal. MT interval is normal. QRS interval is normal. QT interval is normal. T waves are Flattened. No ST changes noted. Plan to admit for Hypokalemia, Hypo-osmolality and hyponatremia, Anemia, unspecified, Elevated white blood cell count, Other ulcerative colitis with other complication Allergies No Known Allergies Allergy (Verified 05/21/22 11:37) Home Medications: Sertraline [Zoloft*] 0.5 tab PO DAILY 01/30/20 Trazodone [Desyrel*] 2 - 3 tab PO BEDTIME PRN PRN 01/30/20 Adalimumab [Humira Pen] 40 mg SQ SEECOM 05/18/22 Cholecalciferol (Vitamin D3) [Vitamin D 1000 Iu Tab] 1,000 unit PO DAILY 05/18/22 Cyanocobalamin (Vitamin B-12) [Vitamin B-12] 2,500 mcg SL DAILY 05/18/22 Ferrous Sulfate [Iron] 325 mg PO DAILY 05/18/22 Mesalamine 4 tab PO DAILY 05/18/22 Multivit-Min/Ferrous Fumarate [Multivitamin Liquid] 9 mg PO DAILY 05/18/22 hydroCHLOROthiazide [Hydrodiuril] 25 mg PO DAILY 05/18/22 - Past Medical/Surgical History Diabetic: No -: Ulcerative colitis -: anxiety -: kidney stones Past Surgical History: Reviewed- Non-Contributory - Social History Smoking Status: Never smoker Alcohol use: No CD- Drugs: Yes Caffeine use: No Place of Residence: Home Review of Systems 10-point ROS is otherwise unremarkable Physical Examination - Physical Exam General: Alert, In no apparent distress, Oriented x3 HEENT: Atraumatic, Normocephalic, PERRLA Neck: Supple, 2+ carotid pulse no bruit, JVD not distended Respiratory: Clear to auscultation bilaterally, Normal air movement Cardiovascular: No edema, Normal pulses, Regular rate/rhythm, Normal S1 S2 Gastrointestinal: Normal bowel sounds, Tenderness (Left upper quadrant, left lower quadrant epigastric tenderness) Musculoskeletal: No clubbing, No swelling Integumentary: No rashes, No breakdown Neurological: Normal speech, Normal strength at 5/5 x4 extr - Studies Laboratory Data (last 24 hrs) 07/07/23 07/07/23 07/07/23 16:45 16:45 16:45 WBC 12.70 H Hgb 11.2 L Hct 33.1 L Plt Count 609 H PT 15.9 H INR 1.45 Sodium 120 L Potassium 2.7 L BUN 9 Creatinine 0.87 Glucose 116 H Magnesium 2.4 Total Bilirubin 0.5 AST 22 ALT 40 Alkaline Phosphatase 107 Lipase 31 Assessment and Plan - Plan Assessment plan Other ulcerative colitis with other complication acute Elevated white blood cell count acute Hypokalemia acute Hypo-osmolality acute hyponatremia acute Anemia, unspecified chronic DVT prophylaxis Assessment plan Other ulcerative colitis with other complication Elevated white blood cell count GI consult, IV fluids, IV antibiotics, steroids, Urine cultures, stool cultures, blood cultures CT of the abdomen pelvis IMPRESSION: Very large intra-abdominal thick walled collection containing air and fluid in the left abdomen. This maximally measures 21 cm in craniocaudad dimension. Most likely this is an abscess. This could be result of prior colitis/diverticulitis or perforated malignancy in the sigmoid colon. Abdominal ultrasound IMPRESSION: No gallbladder stones or biliary dilatation.Moderate gallbladder sludge. Chest x-ray IMPRESSION: No acute intrathoracic process suspected. eukocytosis 12.70 left shift 91.9, 103 / 90; Pulse 104; Resp 16; Temp 98.1; Pulse Ox 100% on R/A. EKG Rate is 82 beats/min. Rhythm is regular. QRS [place] is Normal. MT interval is normal. QRS interval is normal. QT interval is normal. T waves are Flattened. No ST changes noted. Hypokalemia Hypo-osmolality hyponatremia Trend electrolytes replace as needed Nephrology consult hyponatremia 128 hypokalemia two-point BNP 184 hypoalbumin 2.2 urine sodium, pending. Anemia, unspecified Trend H&H, microcytic anemia 11.2, 33.1, DVT prophylaxis Clear liquid diet Full code Discharge Plan: Home Plan to discharge in: 48 Hours - Advance Directives Does patient have a Living Will: No Does patient have a Durable POA for Healthcare: No - Code Status/Comfort Care Code Status: Full Code Physician Review: Patient Assessed, Agree with Above Assessment and Plan Critical Care: No Time Spent Managing Pts Care (In Minutes): 50
[2023-07-07] MEDS ORDERED: ACETAMINOPHEN 500 MG TAB PO PRN (19:33)
[2023-07-07] MEDS ORDERED: ONDANSETRON 4 MG/2 ML VIAL IV PRN (19:33)
[2023-07-07] MEDS ORDERED: HYOSCYAMINE SULF 0.125 MG TAB PO PRN (19:33)
[2023-07-07] MEDS ORDERED: METRONIDAZOLE 500mg IVPB 500 MG/100 ML BAG IV SCH (20:00)
[2023-07-07] MEDS ORDERED: NA CHLORIDE 0.9% 1,000 ML IV SCH (20:00)
[2023-07-07 20:38] VITALS: BMI 32.1
[2023-07-07 20:51] VITALS: BP 109/68; TEMP 97.5
[2023-07-07 21:28] VITALS: O2SAT 100
[2023-07-07] MEDS ORDERED: NA CHLORIDE 0.9% 100 ML ONE (22:44)
[2023-07-07] MEDS ORDERED: Meropenem 1000 MG/VIAL IV ONE (22:44)
[2023-07-07] MEDS ORDERED: POTASSIUM PHOS IN 0.9 % NACL 15 MMOL/250 ML BAG IV ONE (23:00)
[2023-07-07 23:31] LABS: Potassium 3.5 mEq/L (3.5-5.1)
[2023-07-08] MEDS ORDERED: METHYLPREDNISOLONE 125 MG INJ IV SCH
[2023-07-08] MEDS ORDERED: METRONIDAZOLE 500mg IVPB 500 MG/100 ML BAG IV SCH (01:00)
[2023-07-08] MEDS ORDERED: POTASSIUM PHOS IN 0.9 % NACL 15 MMOL/250 ML BAG IV ONE (01:12)
[2023-07-08] MEDS ORDERED: CIPROFLOXACIN 400mg IV 400 MG/200 ML BAG IV SCH (08:00)
--- NOTE | 2023-07-08 12:22 | EKG ---
Test Date: 2023-07-07 Test Time: 17:13:38 Spinal Surgeon: MARY MEASUREMENT RESULTS: Intervals: Rate: 82 IN: 126 QRSD: 84 QT: 382 QTc: 446 [place]: P: 47 IN: 126 QRS: 51 T: 81 INTERPRETIVE STATEMENTS: Normal sinus rhythm with sinus arrhythmia Nonspecific ST and T wave abnormality Abnormal ECG No previous ECG available for comparison Electronically Signed On 07-08-23 12:20:16 CDT by Jeff Orozco
== END 2023-07-08 01:26 | disposition short-term general hospital (02) ==
LOC: ER 16:31 → 2ND 19:12 → UNDOADMIN 19:12 → ER 07-08 01:26
DX: K51.814 Other ulcerative colitis with abscess (principal); E87.1 Hypo-osmolality and hyponatremia; E86.0 Dehydration; E87.6 Hypokalemia; Z87.442 Personal history of urinary calculi; D72.829 Elevated white blood cell count, unspecified
CPT/HCPCS: 93005; 85025; 80048 ×2; 36415; 82140; 83735; 84100; 85610; 84300; 80076; 83605; 84484; 83690; 83880; 83930; 83935; 74177; 71045; 76705; 82805; 99285; Q9967; J3480 ×2; J2270; J2185; J2930; J2405; J0744; J7030 ×2

== ENCOUNTER 2024-05-22 07:27 | Day surgery (SDC) | payer OTHER ==
[2024-05-17 10:54] LABS: Absolute Lymphocytes (CBC) 0.7 K/uL (0.7-4.9); Absolute Monocytes 0.5 K/uL (0.1-1.3); Absolute Neutrophil 4.9 K/uL (1.8-8.0); Basophils % 0.4 % (0-1.3); Eosinophils % 0.6 % (0-4.4); Hematocrit 50.8 % (39.6-49.0); Hemoglobin 17.1 g/dL (13.6-17.9); Lymphocytes % 11.2 % (15.3-44.8); MCH 32.9 pg (27.0-35.0); MCHC 33.7 g/dL (32.0-36.0); MCV 97.6 fL (80-100); MPV 8.4 fL (7.6-11.3); Monocytes % 8.4 % (3.3-12.3); Neutrophils % 79.4 % (41.7-73.7); Nucleated Red Blood Cells % 0.2 % (0-0); Platelets 300 thou/uL (152-406); RBC Red Blood Cell Count 5.21 M/uL (4.33-5.43)
[2024-05-17 10:59] LABS: PT Prothrombin Time 11.5 SECONDS (9.4-12.5); Protime INR 1.03
[2024-05-17 11:09] LABS: Anion Gap 8.2 mEq/L (5.0-15.0); Potassium 5.2 mEq/L (3.5-5.1)
--- NOTE | 2024-05-17 11:12 | RAD REPORT ---
EXAM DESCRIPTION: Maia Brito (2 Views)05/17/2024 10:48 am CLINICAL HISTORY: Preop for lithotripsy COMPARISON: 2022 FINDINGS: The lungs appear clear of acute infiltrate. The heart is normal size IMPRESSION: No acute abnormalities displayed
--- NOTE | 2024-05-17 16:23 | EKG ---
Test Date: 2024-05-17 Test Time: 10:27:23 Medical Technologist Generalist: JACY MEASUREMENT RESULTS: Intervals: Rate: 92 MO: 120 QRSD: 70 QT: 326 QTc: 403 [place]: P: 64 MO: 120 QRS: 42 T: 62 INTERPRETIVE STATEMENTS: Sinus rhythm with premature atrial complexes Otherwise normal ECG Compared to ECG 07/07/2023 17:13:38 Atrial premature complex(es) now present Sinus arrhythmia no longer present ST (T wave) deviation no longer present Electronically Signed On 05-17-24 16:23:27 CDT by Sonu Rueda
[2024-05-22] MEDS: Ringers Lactate 1,000 ML IV ONE (07:55)
[2024-05-22 08:16] LABS: Anion Gap 11.3 mEq/L (5.0-15.0); Potassium 4.3 mEq/L (3.5-5.1)
[2024-05-22] MEDS ORDERED: propofoL 200 MG/20 ML VIAL IV ONE (08:49)
[2024-05-22] MEDS ORDERED: LIDOCAINE 1% MPF 5 ML VIAL ONE (08:49)
[2024-05-22] MEDS ORDERED: FENTANYL CITR 100 MCG/2 ML ONE (08:50)
[2024-05-22] MEDS ORDERED: MIDAZOLAM HCL 2 MG/2 ML INJ ONE (08:50)
[2024-05-22] MEDS ORDERED: ROCURONIUM 50 MG/5 ML VIAL IV ONE (08:50)
[2024-05-22] MEDS: CEFAZOLIN SODIUM 2 GM/VIAL ONE (09:44)
[2024-05-22] MEDS ORDERED: GLYCOPYRROLATE 0.2 MG/ML SYR ONE (11:17)
[2024-05-22] MEDS ORDERED: NEOSTIGMINE 1 MG/ML -10 ML VIAL ONE (11:18)
--- NOTE | 2024-05-22 11:39 | RAD REPORT ---
EXAM DESCRIPTION: RAD - Urethrocystogrphy Retrograde - 05/22/2024 11:33 am CLINICAL HISTORY: BILATERAL RETROGRADE COMPARISON: No comparisons FINDINGS: Total fluoro time: 0.33 seconds
[2024-05-22] MEDS ORDERED: CODEINE 30MG/APAP 300MG TAB ONE (12:20)
[2024-05-22] MEDS ORDERED: PHENAZOPYRIDINE 100MG TAB PO ONE (12:20)
[2024-05-22] MEDS: PHENAZOPYRIDINE 100MG TAB PO ONE (12:24)
[2024-05-22] MEDS: CODEINE 30MG/APAP 300MG TAB PO PRN (12:38)
[2024-05-22 13:29] VITALS: BP 114/70; O2SAT 99
[2024-05-22 13:45] VITALS: TEMP 98.6
--- NOTE | 2024-05-22 16:27 | OP ---
Surgeon: CRIS NARANJO Preoperative Diagnoses: 1.Left ureterolithiasis. 2.Left hydronephrosis. 3.Right flank pain. Postoperative Diagnoses: 1.Left ureterolithiasis. 2.Left hydronephrosis. 3.Right flank pain. 4.High-grade distal left ureteral obstruction. 5.Right extrarenal pelvis without ureteral obstruction noted. Principal Procedures: 1.Cystoscopy. 2.Bilateral retrograde pyelography studies. Indication For Procedure: Mr. Jacob presented to the Urology Clinic with obstructive left ureter olithiasis of a prolonged duration. He was no longer having any flank pain on the left, but subseque nt ultrasonographic testing revealed the presence of persistent left hydronephrosis. As a result, he was counseled on the need for surgical intervention despite his pain, and since he had failed to pas s the stone, surgery was planned. Additionally, he complained on his preoperative visit of some right-sided flank pain, which I agree t o evaluate at the time of the left side evaluation today, potentially recommending a stent placement, if obstruction seen. Procedure In Detail: The patient was consented in the preoperative holding area before being transfe rred to the operative suite where general anesthesia was induced. He was given Ancef 2 g IV antimicr obial prophylaxis, and pneumo boots were provided for DVT prophylaxis. He was placed in the lithotom y position, padded and secured to the table appropriately. His genitalia were prepped with Hibiclens and he was draped in standard fashion. The case was begun using a 22-Dominican rigid cystoscope to tra verse the urethra and into the bladder with ease. The bladder was decompressed of fluid and urine an d then refilled with sterile saline and surveyed. No papillary mucosal lesions, foreign bodies, or s tones were noted throughout. The ureteral orifices were orthotopic in location. As a result, I cannulated the left ureteral orifice using the tip of a 5-Dominican ureteral access renetta ter and I performed a retrograde study. Left retrograde pyelography: Using a 70:30 mixture of Omnipaque and saline, after spot fluoroscopic imagery did not identify the presence of any stone or obstruction without the contrast administered, I then injected the contrast mixture via the 5-Dominican ureteral access catheter. It did fill about th e distal 5 or 6 cm of his left ureter before reaching a point of termination where no contrast would emanate beyond. No stone was seen at that site, but attempts to advance and retract the 5-Dominican ure teral access catheter while injecting additional diluted contrast failed to deliver any additional co ntrast beyond the point of obstruction in the distal ureter. As a result, I requested a cone-tipped catheter in order to create a better seal for injection of contrast to see if we could dislodge the p resumptively impacted stone and get some contrast beyond the point of obstruction, but despite this, no contrast would emanate beyond the area of obstruction seen. Further attempts to advance the cone- tipped catheter further into the ureter resulted in some submucosal localization of the cone-tip and upon injection of contrast, it did cause submucosal filling essentially obliterating the cystoscopic entry into the left ureteral orifice. I turned my attention to the patient's right side where I again used the 5-Dominican ureteral access cat heter and performed a retrograde study. Right retrograde pyelography: Using a 70:30 mixture of Omnipaque and saline, I injected the contrast mixture via the lumen of the 5-Dominican ureteral access catheter inserted into the distal ureter. It did propagate up the distal into the mid and proximal ureter with no signs of ureteral dilation or ob struction. It then entered the renal pelvis, which did seem to have a degree of pelviectasis, but th e calices did fill initially in the upper and mid pole where there was no blunting of the calices and they were sharp. Eventually, the lower pole elaine did also fill and was sharp in character. I tariq brittny the 5-Dominican ureteral access catheter and noted the ureter to rapidly efflux the contrast. The r enal pelvis did also begin to decompress over the brief period of observation. As a result, with no definitive obstruction observed, and inability to access the left distal ureter, I concluded the eval uation and drained his bladder of fluid and urine and contrast before ultimately removing the cystosc ope. The patient was then taken out of the lithotomy position, awakened from general anesthesia, tra nsferred to a stretcher, and then transferred to the recovery room in good condition. Complications: Submucosal contrast injection at the left ureteral orifice. Discharge Disposition: He will be referred for prompt left percutaneous nephrostomy and preferably n ephroureteral stent given the high-grade obstruction prohibiting retrograde access and stent placemen t. Subsequent followup should be established in the Urology Clinic to discuss the potential need for antegrade ureteroscopy versus retrograde management of the stone if the nephroureteral stent can be placed. He will be counseled about the significant risk of development of ureteral stricture disease given th e high-grade nature of the impacted stone and the obstruction seen today. If the patient continues to complain of significant right flank pain, he will require a CT of the abd omen and pelvis without contrast to rule out obstructing ureterolithiasis since an extrarenal pelvis was suspected on the retrograde pyelography on the right and would be a confounding factor as it rela jordan to any potential ultrasonographic determination of obstruction on the right. IMELDA/MIGUE Voice ID: [id number] Report ID: [id number]
== END 2024-05-22 13:20 | disposition home or self-care (01) ==
LOC: OR 07:27
PROVIDERS: ATTEND Urology
PROC: BT14ZZZ Fluoroscopy of Kidneys, Ureters and Bladder (ICD-10-PCS; principal; 2024-05-22 09:45)
DX: N20.2 Calculus of kidney with calculus of ureter (principal); N13.30 Unspecified hydronephrosis; R10.9 Unspecified abdominal pain; K21.9 Gastro-esophageal reflux disease without esophagitis
CPT/HCPCS: 93005; 87088; 85025; 87086; 80048 ×2; 36415 ×2; 85610; 71046; 74450; 51610; 52000; J2704; J2710; J2001; J2250; J3010; J7120

== ENCOUNTER 2024-07-31 07:03 | Day surgery (SDC) | payer OTHER ==
[2024-07-26 14:20] LABS: Absolute Eosinophils 0.1 K/uL (0-0.5); Absolute Lymphocytes (CBC) 0.8 K/uL (0.7-4.9); Absolute Monocytes 0.4 K/uL (0.1-1.3); Absolute Neutrophil 3.8 K/uL (1.8-8.0); Basophils % 0.5 % (0-1.3); Eosinophils % 1.2 % (0-4.4); Hematocrit 36.7 % (39.6-49.0); Hemoglobin 13.4 g/dL (13.6-17.9); Lymphocytes % 16.4 % (15.3-44.8); MCH 35.8 pg (27.0-35.0); MCHC 36.5 g/dL (32.0-36.0); MCV 98.2 fL (80-100); MPV 8.3 fL (7.6-11.3); Monocytes % 7.1 % (3.3-12.3); Neutrophils % 74.8 % (41.7-73.7); Nucleated Red Blood Cells % 0.1 % (0-0); Platelets 340 thou/uL (152-406); RBC Red Blood Cell Count 3.73 M/uL (4.33-5.43)
[2024-07-26 14:21] LABS: PT Prothrombin Time 11.3 SECONDS (9.4-12.5); Protime INR 1.01
[2024-07-26 14:40] LABS: Anion Gap 14.1 mEq/L (5.0-15.0); Potassium 4.1 mEq/L (3.5-5.1)
[2024-07-31] MEDS: Ringers Lactate 1,000 ML IV ONE (07:30)
[2024-07-31] MEDS ORDERED: FENTANYL CITR 100 MCG/2 ML ONE (09:09)
[2024-07-31] MEDS ORDERED: LIDOCAINE 1% MPF 5 ML VIAL ONE (09:09)
[2024-07-31] MEDS ORDERED: ROCURONIUM 50 MG/5 ML VIAL IV ONE ×2 (09:09→12:52)
[2024-07-31] MEDS ORDERED: MIDAZOLAM HCL 2 MG/2 ML INJ ONE (09:09)
[2024-07-31] MEDS ORDERED: propofoL 200 MG/20 ML VIAL IV ONE (09:09)
[2024-07-31] MEDS ORDERED: KETOROLAC 30 MG/ML INJ ONE (09:09)
[2024-07-31] MEDS ORDERED: LIDOCAINE 2% MPF 5 ML VIAL ONE (09:37)
[2024-07-31] MEDS ORDERED: SUGAMMADEX SODIUM 200 MG/2 ML VIAL IV ONE (09:40)
[2024-07-31] MEDS: GENTAMICIN 80 MG/100 ML BAG 160 MG/200 ML BAG IV ONE (10:00)
[2024-07-31] MEDS ORDERED: NA CHLORIDE 0.9% 1,000 ML ONE (10:04)
[2024-07-31] MEDS ORDERED: NA CHLORIDE 0.9% 100 ML ONE (10:05)
[2024-07-31] MEDS: AMPICILLIN SODIUM 2 GM/VIAL VIAL ONE (10:34)
[2024-07-31] MEDS: Levofloxacin500mg IV 500 MG/100 ML BAG IV ONE (10:36)
[2024-07-31] MEDS ORDERED: dexAMETHasone 10 MG/ML VIAL ONE (13:26)
[2024-07-31] MEDS ORDERED: HYDROCODONE/APAP 5/325 MG TAB PO PRN (14:53)
[2024-07-31 15:11] VITALS: O2SAT 100
--- NOTE | 2024-07-31 15:23 | P.OP ---
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 He was no longer having any flank pain on the left, but subsequent ultrasonographic imaging revealed the presence of persistent left hydronephrosis. As a result, he underwent an attempt at cystoscopy with left retrograde ureteral stent placement which was unsuccessful and revealing blind termination within the mid distal ureter. As a result, he was referred for a nephrostomy tube, possible nephroureteral stent placement, and this was attempted on 06/07/2024. They were unsuccessful at getting a wire past the point of obstruction; so they simply placed a nephrostomy tube. He presents today for definitive evaluation and management of the ureteral obstruction, presumptively due to a stone; however, a more recent CT scan performed since that time no longer revealed the presence of the mid distal ureterolithiasis previously seen at the time of the initial attempted retrograde stent placement. Procedure note: The patient was consented in the preoperative holding area before being transferred to the operative suite where general anesthesia was induced. He had been given Levaquin 500 mg IV antimicrobial prophylaxis along with ampicillin 2 g and gentamicin 160 mg for IV antimicrobial prophylaxis given the presence of the nephrostomy tube and prior urine cultures revealing organisms with a degree of resistance and Enterococcus. He was initially placed supine on the procedure table and then in the lithotomy position, padded and secured to the table appropriately. A IV bag that was padded with foam was placed beneath his left hip in order to elevate the pelvis and expose the nephrostomy tube in his left flank. I prepped the region around his left flank with ChloraPrep as well as the nephrostomy tube itself, which I had from the bag. His genitalia was prepped with Hibiclens, and the entirety of both of those areas were draped in the entirety. The case was begun using a 22 Guinean rigid cystoscope to traverse the urethra and into the bladder with ease. The bladder was quite full; so it was decompressed of fluid and urine. I then cannulated the left ureteral orifice, which was orthotopic in location using the tip of a 5 Guinean ureteral access catheter and performed a retrograde pyelogram. Left retrograde pyelography: Using a 70: 30 mixture of Omnipaque and saline, contrast was injected via the lumen of the 5 Guinean ureteral access catheter and did propagate up the distal ureter until it met a point of obstruction where it blindly terminated at the pelvic inlet. I advanced a 5 Guinean ureteral catheter up to the point of obstruction and again injected contrast to see if any would go into the proximal ureter, given the decompression time that it taken place with the nephrostomy tube, but no contrast would pass the point of blind termination. As a result, I then turned my attention to his nephrostomy tube. Left antegrade pyelography: I started by using a 70: 30 mixture of Omnipaque and saline, and I injected that via the nephrostomy tube delineating the renal pelvis and calyces. Contrast did propagate down the proximal ureter and began to go into the mid ureter before terminating at a point within the mid proximal ureter. Because the contrast may simply have not been able to propagate down to the point of obstruction, I cut the nephrostomy tube and placed a sensor wire through the nephrostomy tube coiling it within the renal pelvis. I then utilized a Kumpe catheter to redirect the tip of the sensor wire appropriately down into the UPJ and all the way down the proximal into the mid ureter until it reached a point of termination where it would no longer pass any further. I advanced the Kumpe catheter over the wire down to that point of termination and again injected contrast. Similarly, the contrast was blind ending in that position and would not emanate any further beyond. The distance between the 5 Guinean ureteral catheter placed retrograde and the Kumpe catheter placed antegrade was 4.7 cm on subsequent measurement. However, despite the distance observed, which I strongly suspected would not be manageable endoscopically, I placed a HutGrip guidewire via the Kumpe catheter down to the point of obstruction in the ureter and remove the Kumpe catheter leaving the wire in place. I then utilized a 2-0 nylon suture to secure the wire to the skin so would not pull out. The flank along with the wire was covered with Ray-Del sponges and a towel and then covered with a OpSite. The patient was then taken out of the lithotomy position, the 5 Guinean ureteral access catheter was removed, and he was transferred to a stretcher and then taken to exam room 1 from cystoscopy where he was placed in the prone position padded using a neuro roll at the level of the chest and a large body pad with pillows beneath his shins and padding beneath his knees, ultimately securing him to the table in a comfortable position prone. His flank region was again prepped with ChloraPrep including the wire and then draped in standard fashion for mini-percutaneous approach to antegrade ureteroscopy. I thus placed a dual-lumen catheter over the Bentson guidewire into the renal pelvis and confirmed appropriate localization of the wire by injecting contrast before ultimately passing a sensor wire alongside the Bentson guidewire down the proximal ureter down to the level of obstruction in the mid ureter. I then switched the Bentson guidewire for a Super Stiff wire, which was left as a safety wire. I remove the dual-lumen catheter and secured the safety wire to the skin where the wire was placed percutaneously all the way down to the point of obstruction in the mid ureter. I then passed a 11 x 13 Guinean ureteral access sheath over the sensor wire successfully down into the proximal ureter and down to the level near the obstruction in the mid ureter. I then passed the flexible optical ureteroscope over the sensor wire into the mid ureter and utilized pressurized normal saline irrigation to traverse the remaining few centimeters beyond the tip of the ureteral access sheath to the point of blind termination in the mid ureter. At this point, I did observe the tip of the Super Stiff wire going beyond the point of termination of the scope, but the wire did coil not more than 1 cm beyond that point. When I attempted to survey beyond the obstruction alongside the wire, this was thwarted. As a result, I attempted to incise alongside the Super Stiff wire using a 272 nm laser fiber at a power setting of 0.8 J and 15 Hz, hoping to incise a degree of stricture and unmask an embedded ureteral calculus. At 1 point, it did appear that there may have been a dark calculus that I was fragmenting in that location, but with further fragmentation of what appeared to be a stone, I then observed the presence of fat, suggesting I was potentially outside of the ureteral lumen. So I injected contrast via the ureteroscope and it did extra vasate indicating extra ureteral lumen present. So I redirected back into the ureter following alongside the wire that had gone beyond the point of obstruction again trying to find any channel contiguous with the true lumen, but I did this without using any pressurized irrigation to avoid that further extravasating into his retroperitoneum. Unfortunately, this was unsuccessful. I even attempted to pass the tip of the sensor wire under direct vision into the channel formed alongside the Super Stiff wire, but this also would not pass into any true lumen, despite seeming to pass several centimeters beyond the point of maximal extent of the Super Stiff wire. As a result, I left the sensor wire in its position and passed a 5 Guinean ureteral access catheter over it removing the sensor wire and injecting contrast, but this simply confirmed further extravasation as opposed to any communication with the true lumen. As a result, further attempts were aborted, and I placed a Bentson guidewire back into the ureter via the ureteroscope and remove the ureteroscope. I then passed an 8 Guinean [place] loop catheter over the Bentson guidewire into the renal pelvis using fluoroscopic guidance, and I coiled the [place] loop catheter in the renal pelvis, confirming its appropriate positioning with lack of extravasation by injecting contrast again in an antegrade fashion via the catheter. I then se cured the catheter to the skin of his flank using a 2-0 nylon suture, and the catheter was connected to its own drainage bag. He was then flipped from the prone position back supine, extubated, transferred to the recovery room in good condition. Complications: none Discharge disposition: He will require ureteral reimplantation with psoas hitch or Boari flap, as the proximal termination of healthy ureter is just within the pelvic inlet beneath the iliac crest, at the mid body of S1, or alternatively, ureteral substitution. Ureteroureterostomy would have a high likelihood of stricture. I will likely arrange consultation with one of my reconstructive colleagues given his multiple prior abdominal surgeries. He should follow-up with me SAD[facility] to discuss the next steps. I am discharging him with a prescription for Levaquin 250 mg daily for the next 5 days as well as Augmentin 500 mg twice daily for the next 5 days.
[2024-07-31] MEDS ORDERED: Ringers Lactate 1,000 ML IV ONE (15:28)
--- NOTE | 2024-07-31 15:29 | RAD REPORT ---
EXAM: Fluoroscopy use, Urethrocystogrphy Retrograde HISTORY: [facility] MAIN ANTEGRADE LT STENT W NEPHROSTOMY COMPARISON: None FINDINGS: A total of 41 image series were sent to PACS, during a fluoroscopically guided nephrostomy and left ureteral stenting. No radiologist was involved in protocoling or performance of the study, and no radiologist was present for the duration of the procedure. No interpretation of the saved imag es will be provided. Total fluoroscopy time: 1:06 minutes. IMPRESSION: Documentation of fluoroscopy use as above.
[2024-07-31 16:43] VITALS: BP 88/52; TEMP 97
== END 2024-07-31 16:42 | disposition home or self-care (01) ==
LOC: OR 07:03 → SUATTDRO 07:30 → OR 16:42
PROVIDERS: ATTEND Urology
PROC: 0T25X0Z Change Drainage Device in Kidney, External Approach (ICD-10-PCS; 2024-07-31)
PROC: 0TF68ZZ Fragmentation in Right Ureter, Via Natural or Artificial Opening Endoscopic (ICD-10-PCS; principal; 2024-07-31 09:15)
DX: N13.2 Hydronephrosis with renal and ureteral calculous obstruction (principal); N13.1 Hydronephrosis with ureteral stricture, not elsewhere classified; K21.9 Gastro-esophageal reflux disease without esophagitis
CPT/HCPCS: 52353; 50435; 87088; 85025; 87086; 80048; 36415 ×2; 85610; 84295; 74450; 51610; J2704; J2003; J2250; J3010; J1100; J0290; J7120 ×2; J7030; J1580